=== PATIENT | male | born 1990 | race Caucasian/White ===

== ENCOUNTER 2020-09-01 11:05 | Emergency (ER) | payer OTHER, SELFPAY ==
--- NOTE | ~2020-09-01 | XR_ITS ---
EXAMINATION: XR abdomen/kub 1V DATE: 09/01/2020 11:54 INDICATION: Hematuria. Low back pain. TECHNIQUE: A supine view of the abdomen on 2 radiographs was obtained. COMPARISON: Abdomen radiographs 02/22/2017, CT abdomen and pelvis 02/22/2017 FINDINGS: There are no dilated loops of bowel. There is a phlebolith in the pelvis. There is a 7 x 4 mm stone in proximal left ureter. There are stones in the kidneys measuring up to 3.9 cm on the right . IMPRESSION: 1. 7 x 4 mm stone in proximal left ureter. 2. Bilateral kidney stones. Reviewed, dictated and finalized at location A.
[2020-09-01 11:15] VITALS: BP 142/77; PULSE 88; RESP 24; TEMP 36.7; O2SAT 100
--- NOTE | 2020-09-01 12:13 | ED.MALEGU ---
HPI - Male Genitourinary General Chief complaint: Urogenital-Male Stated complaint: BODY PAIN/LOW ABD/SIDES/BACK PAIN Time Seen by Provider: 09/01/20 12:02 Source: patient and RN notes reviewed Mode of arrival: ambulatory Limitations: no limitations History of Present Illness HPI Narrative: Patient presents today complaining of body aches and bilateral flank pain that started 5 days ago and has progressively worsened. Associated symptoms include fever up to 99.5, dark-colored urine. Denies dysuria, nausea or vomiting, known hematuria. States over the last couple of days he has developed lower abdominal pain, back pain, and groin pain. Currently rates his pain 6/10 and has been taking ibuprofen. Pain increases with walking and standing. Patient has history of kidney stones with lithotripsy. Reports last kidney stone was approximately 3 years ago when he was treated at [facility]. Complaint: other (Possible kidney stone) Related Data Home Medications Medication Instructions Recorded Confirmed bupropion HCl 150 mg tablet,12 hr 150 mg PO DAILY 08/07/19 09/01/20 sustained-release dextroamphetamine-amphetamine 10 10 mg PO DAILY 08/07/19 09/01/20 mg tablet escitalopram oxalate 10 mg PO DAILY 09/01/20 09/01/20 Allergies Allergy/AdvReac Type Severity Reaction Status Date / Time No Known Allergies Allergy Unverified 09/01/20 11:15 Review of Systems Review of Systems: Narrative: CONSTITUTIONAL: Denies chills, or sweats.+ Body aches, fever EYES: Denies visual changes, redness, or discharge. ENT: Denies rhinorrhea, congestion, sore throat, or otalgia. CARDIOVASCULAR: Denies chest pain, palpitations, or edema. RESPIRATORY: Denies cough or dyspnea. GASTROINTESTINAL: Denies nausea, vomiting, or diarrhea. + Abdominal pain GENITOURINARY: Denies dysuria or hematuria.+ Dark-colored urine, bilateral flank pain SKIN: Denies rash, itching, or wounds. MUSCULOSKELETAL: Denies joint pain, or myalgia. + Low back pain NEUROLOGIC: Denies headache, numbness, tingling, or weakness. PSYCH: Denies depression or anxiety. [facility] Past Medical History Medical History (Updated 09/01/20 @ 12:17 by Cele Orellana, WIRELESS MANAGER, ) Anxiety disorder Depression Hyperlipemia RENATA (obstructive sleep apnea) Panic disorder [episodic paroxysmal anxiety] Surgical History Surgical History (Updated 08/07/19 @ 15:12 by Marisabel Pinon CMA) Kidney stones Family History Family History (Updated 08/07/19 @ 15:12 by Marisabel Pinon CMA) Mother Diabetes mellitus Father Morbid obesity Social History Social History (Updated 08/07/19 @ 15:15 by Marisabel Pinon CMA) Smoking status: Never smoker Alcohol intake: current Substance use: never Comments At time of signature, I have reviewed and agree with nursing past medical, surgical, social and family history unless otherwise noted. Please see nursing chart for further information. There is no relevant family history pertinent to the presenting complaint Exam Narrative: Exam Narrative: GENERAL: Well-appearing, well-nourished, and in mild pain distress. HEAD: Normocephalic, atraumatic. EYES: EOMI. No redness or drainage. Conjunctivae normal. ENT: Mucous membranes pink and moist. NECK: Normal AROM. Supple. No lymphadenopathy. CHEST: No respiratory distress. Clear to auscultation. HEART: Regular rate and rhythm. No murmur appreciated. Normal peripheral pulses. ABDOMEN: Soft, nondistended, normal active bowel sounds. MUSCULOSKELETAL: No bony tenderness.+ Generalized abdominal tenderness. Bilateral CVA tenderness EXTREMITIES: Normal range of motion. No edema. SKIN: Warm, dry, no rash. Capillary refill normal. Normal skin turgor. NEURO: No focal deficits. Alert and oriented x3. Gait steady. PSYCH: Normal affect. No signs of depression or anxiety. Course Vital Signs Vital signs: Vital Signs Temperature 98.0 F 09/01/20 11:15 Pulse Rate 88 05
== END 2020-09-01 12:22 | disposition short-term general hospital (02) ==
PROVIDERS: Emergency Provider Nurse Practitioner
DX: N21.1 Calculus in urethra (principal); N39.0 Urinary tract infection, site not specified; F41.9 Anxiety disorder, unspecified; F32.9 Major depressive disorder, single episode, unspecified; E78.5 Hyperlipidemia, unspecified; G47.33 Obstructive sleep apnea (adult) (pediatric)
CPT/HCPCS: 74018; 81003; 99203; G0463

== ENCOUNTER 2020-09-01 12:47 | Observation (INO) | payer OTHER, SELFPAY ==
[2020-09-01] VITALS (7 sets, daily range): BP systolic 130–147; BP diastolic 60–78; PULSE 87–109; RESP 18–24; TEMP 36.3–36.6; O2SAT 93–99; BMI 33.9
--- NOTE | ~2020-09-01 | XR_ITS ---
XR abdomen/kub 1V 09/01/2020 20:06 Indication: Renal stones Procedure: KUB Comparison: 09/01/2020 Findings: There are bilateral internal ureteral stents in expected position. There are bilateral liliana l stones, largest in the right kidney measuring approximately 3.1 cm maximum dimension. Bowel gas pat tern nonobstructive. No acute osseous abnormality. Left UPJ stone not appreciated on current study. Impression: 1: Bilateral nephrolithiasis. Reviewed, dictated and finalized at location A. Impression: 1: Bilateral nephrolithiasis.
--- NOTE | ~2020-09-01 | XR_ITS ---
EXAMINATION: XR retrograde pyelo w/stent BI DATE: 09/01/2020 15:32 INDICATION: Bilateral internal ureteral stent placement TECHNIQUE: Fluoroscopic images from a bilateral internal ureteral stent placement are submitted for anibal rosenbaum. 18 seconds of fluoroscopy time. 6 fluoroscopic images FINDINGS: There are bilateral double-J internal ureteral stent projecting in expected position, with proximal C ope loop at the level of the renal pelvis and distal loop in the pelvis within the bladder lumen. IMPRESSION: 1. Bilateral internal ureteral stent placement. Please refer to real-time procedural findings for d etajoaquin. Reviewed, dictated and finalized at location A. IMPRESSION: 1. Bilateral internal ureteral stent placement. Please refer to real-time pro cedural findings for details.
--- NOTE | ~2020-09-01 | CT_ITS ---
EXAMINATION: CT abdomen pelvis wo con DATE: 09/01/2020 14:32 INDICATION: Bilateral flank pain. Pain with urination. TECHNIQUE: Computed tomography (CT) of the abdomen and pelvis was performed without intravenous contr ast. The dose-length product was 571.36 mGy-cm. Automated exposure control and iterative reconstructi on technique were employed. COMPARISON: CT dated 02/22/2017 FINDINGS: Lung bases are unremarkable. Heart size normal. No significant pleural or pericardial effus ion. There are multiple bilateral renal stones. There is a left UPJ stone measuring 6.5 mm. There is a large stone in the right renal pelvis measuring 2.3 cm. Bladder is decompressed. The liver, spleen, pancreas, adrenal glands are unremarkable. Bowel pattern is nonobstructive. No migdalia dence for diverticulitis or appendicitis. No abnormal pelvic masses or fluid collections. Gallbladder is present. No free air or free fluid. IMPRESSION: 1. Left UPJ stone measuring 6.5 mm with mild hydronephrosis and periureteral edema. 2: Bilateral nephrolithiasis, largest in the right renal pelvis measuring up to 2.3 cm. Reviewed, dictated and finalized at location A. IMPRESSION: 1. Left UPJ stone measuring 6.5 mm with mild hydronephrosis and periureteral ed lina. 2: Bilateral nephrolithiasis, largest in the right renal pelvis measuring up t o 2.3 cm.
[2020-09-01 13:39] LABS: Basophils Absolute Auto 0.1 K/mm3 (0.0-0.1); Basophils Percent Auto 0.6 % (0.2-1.2); Eosinophils Absolute Auto 0.1 K/mm3 (0-0.3); Hematocrit 42.3 % (42.0-52.0); Hemoglobin 14.7 g/dL (14.0-18.0); Immature Granulocyte Absolute 0.01 K/mm3 (0.00-0.031); Immature Granulocyte Percent A 0.1 % (0-0.5); Lymphocytes Absolute Auto 2.56 K/mm3 (0.9-3.2); Lymphocytes Percent Auto 32.7 % (18.3-44.2); Mean Corpuscular HGB Conc 34.8 g/dl (32-36); Mean Corpuscular Hemoglobin 28.9 pg (26-34); Mean Corpuscular Volume 83.3 fl (80-100); Mean Platelet Volume 8.7 fl (7.4-10.4); Monocytes Absolute Auto 0.7 K/mm3 (0.1-0.6); Monocytes Percent Auto 8.3 % (2.6-8.5); Neutrophils Absolute Auto 4.5 K/mm3 (1.3-6.7); Neutrophils Percent Auto 57.3 % (45.5-73.1); Platelet Count Result 227 k/mm3 (150-375); Red Blood Count 5.08 M/mm3 (4.6-6.20); Red Cell Distribution Width 12.2 % (11.5-14.5); White Blood Count 7.8 K/mm3 (4.5-10.0)
[2020-09-01 13:49] LABS: Lactic Acid Reflex 0.7 mmol/L (0.7-2.1)
[2020-09-01 13:52] LABS: Alanine Aminotransferase 30 U/L (4-50); Albumin Level 4.3 g/dL (3.5-5.1); Alkaline Phosphatase 69 U/L (38-126); Anion Gap 9 mmol/L (8-16); Aspartate Amino Transferase 28 U/L (17-59); Bilirubin,Total 0.4 mg/dL (0.2-1.3); Blood Urea Nitrogen 14 mg/dL (9-20); CRP 4.7 mg/dL (<1.0); Calcium 9.3 mg/dL (8.4-10.2); Carbon Dioxide 25 mmol/L (22-30); Chloride 106 mmol/L (98-107); Estimated CRCL calculation 171 ml/min; Estimated Glomerular Filt Rate > 60; Glucose 101 mg/dL (75-110); Sodium 140 mmol/L (137-145)
[2020-09-01 14:13] LABS: Add Urine Microscopic? YES; Appearance Urine Cloudy (Clear); Bacteria Urine Trace /hpf; Bilirubin Urine Negative (Negative); Blood Urine 3+ (Negative); Color Urine Yellow (Yellow); Glucose Urine UA Negative (Negative); Ketones Urine Negative (Negative); Leukocyte Esterase Ur 3+ LEU/UL (Negative); Mucus Urine Few /lpf; Nitrate Urine Positive (Negative); Protein Urine 2+ mg/dL (Negative); RBC Urine >75 /hpf (0-2); Specific Grav Ur 1.018 (1.001-1.035); Squamous Epithelial Cell Urine Rare /hpf (Few); Urobilinogen Urine Negative mg/dL (<2.0); WBC Urine >75 /hpf
--- NOTE | 2020-09-01 14:14 | ED.BACK ---
HPI - Back Pain/Injury General Chief Complaint: Back Pain/Injury <HOWIE Nobles Last Filed: 09/01/20 15:08> Stated Complaint: BILATERAL FLANK PAIN, +STONES <HOWIE Nobles Last Filed: 09/01/20 15:08> Time Seen by Provider: 09/01/20 13:45 <HOWIE Nobles Last Filed: 09/01/20 15:08> Source: patient <HOWIE Nobles Last Filed: 09/01/20 15:08> Mode of arrival: ambulatory <HOWIE Nobles Last Filed: 09/01/20 15:08> Limitations: no limitations <HOWIE Nobles Last Filed: 09/01/20 15:08> History of Present Illness HPI Narrative: This is a 30-year-old male that presents the emergency department for bilateral flank pain x5 days. Associated with dysuria. Reports history of kidney stones. He was evaluated at the urgent care and sent here for further evaluation of kidney stone and UTI. Denies fever, vomiting, or hematuria. <HOWIE Nobles Last Filed: 09/01/20 15:08> Related Data Home Medications: Home Medications Medication Instructions Recorded Confirmed bupropion HCl 150 mg tablet,12 hr 150 mg PO DAILY 08/07/19 09/01/20 sustained-release dextroamphetamine-amphetamine 10 10 mg PO DAILY 08/07/19 09/01/20 mg tablet escitalopram oxalate 10 mg PO DAILY 09/01/20 09/01/20 <HOWIE Nobles Last Filed: 09/01/20 15:08> Allergies/Adverse Reactions: Allergies Allergy/AdvReac Type Severity Reaction Status Date / Time No Known Allergies Allergy Verified 09/01/20 14:03 <HOWIE Nobles Last Filed: 09/01/20 15:08> Review of Systems Review of Systems: Narrative: CONSTITUTIONAL: Denies fever GASTROINTESTINAL: Reports abdominal pain. Denies nausea, vomiting GENITOURINARY: Reports dysuria. Denies hematuria. <HOWIE Nobles Last Filed: 09/01/20 15:08> All systems reviewed & are unremarkable except as noted in HPI and below <Amy Conley PA-C - Last Filed: 09/01/20 15:08> [facility] Past Medical History Medical History: Medical History Anxiety disorder Depression Hyperlipemia RENATA (obstructive sleep apnea) Panic disorder [episodic paroxysmal anxiety] <Amy Conley PA-C - Last Filed: 09/01/20 15:08> Surgical History Surgical History: Surgical History Kidney stones <Amy Conley PA-C - Last Filed: 09/01/20 15:08> Family History Family History: Family History Mother Diabetes mellitus Father Morbid obesity <Amy Conley PA-C - Last Filed: 09/01/20 15:08> Social History Social History: Social History Smoking status: Never smoker Alcohol intake: current Substance use: never Gender identity (if verbalized by the patient): Male <Amy Conley PA-C - Last Filed: 09/01/20 15:08> Exam Narrative: Exam Narrative: GENERAL: Well-appearing, obese, and in no acute distress. HEAD: Normocephalic, atraumatic. EYES: EOMI. CHEST: Clear to auscultation. No respiratory distress. No wheezes rales or rhonchi HEART: Regular rate and rhythm. No murmur heard. Normal peripheral pulses. ABDOMEN: Soft, nontender, nondistended, normal active bowel sounds. Bilateral CVA tenderness EXTREMITIES: Normal range of motion. No edema. SKIN: Warm, dry, no rash. NEURO: No focal deficits. Alert and oriented x3. PSYCH: Normal mood and affect <Amy Conley PA-C - Last Filed: 09/01/20 15:08> Course SERGING MACHINE OPERATOR/PA Physician Supervision For this patient encounter, I reviewed the SERGING MACHINE OPERATOR or PA documentation, treatment plan, and medical decision making; and I had [id number] time with this patient. <Kaye Solis MD - Last Filed: 09/01/20 14:50> Vital Signs Vital signs: Vital Signs Temperature 97.5 F L 09/01/20 13:17 Pulse Rate 109 H
[2020-09-01] MEDS: MORPHINE SULFATE (*CRX) 4 MG/ML INJ IV PUSH (14:17)
[2020-09-01] MEDS: ONDANSETRON INJ 4 MG/2 ML VIAL IV PUSH (14:17)
--- NOTE | 2020-09-01 14:17 | WPDHPUPDATE1 ---
History and Physical Update Update Date/Time: 09/01/20 14:17 History and Physical has been reviewed, including an updated exam of the patient. There are NO changes in the patient's condition. Risks, benefits, and alternatives have been discussed and questions answered. Patient agrees to proceed with procedure. To OR for cystoscopy and bilateral ureteral stent placement.
--- NOTE | 2020-09-01 14:17 | PM.IMHP ---
H&P: HPI History of Present Illness Date/Time: 09/01/20 14:17 Chief Complaint: Left flank pain Narrative: Mr. Hanson is a pleasant 30 year old man with a history of nephrolithiasis s/p lithotripsy in 2017 who presents to the [place] ER after going to Urgent Care earlier today for left flank pain with nausea. He denies fevers. UA at Urgent Care was positive for nitrites and LE. He reports he has had bilateral pain for the past several weeks but it has progressively worsened. His left sided pain is worse than the right. Review of Systems Constitutional: Constitutional: Reports no additional constitutional complaints Eyes: Eyes: Reports no additional eye complaints ENT: Reports Normal hearing present Cardiovascular: Cardiovascular: Reports no additional cardiovascular complaints Respiratory: Respiratory: Reports no additional respiratory complaints Gastrointestinal: Gastrointestinal: Reports no additional gastrointestinal complaints Genitourinary: Genitourinary: Reports flank pain (bilateral) Musculoskeletal: Musculoskeletal: Reports no additional musculoskeletal complaints Integumentary/Breasts: Skin/Breast: Reports system reviewed and no additional complaints, except as docu Neurologic: Reports system reviewed and no additional complaints, except as documented Psychiatric: Psychiatric: Reports no additional psychiatric complaints Endocrine: Endocrine: Reports no additional endocrine complaints Hematologic/Lymphatic: Hematologic/Lymphatic: Reports no additional hematologic/lymphatic complaints Allergic/Immunologic: Allergic/Immunologic: Reports no additional allergic/immunologic complaints [facility] Past Medical History Medical History Anxiety disorder Depression Hyperlipemia RENATA (obstructive sleep apnea) Panic disorder [episodic paroxysmal anxiety] Surgical History Surgical History Kidney stones Family History Family History Mother Diabetes mellitus Father Morbid obesity Social History Social History Smoking status: Never smoker Alcohol intake: current Substance use: never Gender identity (if verbalized by the patient): Male Meds Home Medications and Allergies Home Medications Medication Instructions Recorded Confirmed Type bupropion HCl 150 mg tablet,12 hr 150 mg PO DAILY 08/07/19 09/01/20 History sustained-release dextroamphetamine-amphetamine 10 10 mg PO DAILY 08/07/19 09/01/20 History mg tablet escitalopram oxalate 10 mg PO DAILY 09/01/20 09/01/20 History Allergies Allergy/AdvReac Type Severity Reaction Status Date / Time No Known Allergies Allergy Verified 09/01/20 14:03 Vital Signs Vital Signs - 24 hr 09/01/20 13:17 Temperature 97.5 F L Pulse Rate 109 H Respiratory Rate 18 Blood Pressure 134/71 Pulse Oximetry 99 Exam Const: General: cooperative, healthy appearing, well developed, alert and awake Eyes: General: appearance normal, both eyes and all related structures Neck: Neck: normal visual inspection Resp: Effort & Inspection: normal respiratory effort, able to speak in complete sentences, normal respiratory pattern, no audible wheezes and no cough Cardio: Rate: regular rate Peripheral pulses: Peripheral pulses 2+ throughout GI: Inspection: normal to inspection GI Palp: No abdominal tenderness, Yes Soft to palpation and No Tenderness to palpation present (GI) Skin: General skin exam: normal color and no rashes or lesions noted Neuro: General: oriented to person, oriented to place, oriented to time and no focal motor deficits Extrem: General: normal to inspection Psych: Appearance: grossly normal and well kempt Speech and movement: Normal speech and movement present and Clear speech present H&P: Results Labs Labs: Shor
[2020-09-01] MEDS: SODIUM CHLORIDE 0.9% IV 1,000 ML 999 ML IV CONT (14:24)
[2020-09-01 14:29] LABS: INR 0.9; Prothrombin Time 12.6 Seconds (11.1-14.7)
[2020-09-01 14:32] LABS: Partial Thromboplastin Time 27.9 SECONDS (22.3-36.8)
--- NOTE | 2020-09-01 14:37 | WPDANESEPP ---
Anes - Eval Pre Procedure Procedure: Operation Date: 09/01/20 15:30 Proposed Procedures p Cystoscopy(Not Applicable) - Senthil Marcial MD Date/Time: 09/01/20 14:37 Pre Op Diagnosis: BILATERAL FLANK PAIN, +STONES Patient Data Age: 30 Gender: M Height: 6 ft Weight: 113.4 kg Last Vital Signs Temp 36.4 C L 09/01/20 13:17 Pulse 109 H 09/01/20 13:17 Resp 18 09/01/20 13:17 BP 134/71 09/01/20 13:17 Pulse Ox 99 09/01/20 13:17 Allergies Allergy/AdvReac Type Severity Reaction Status Date / Time No Known Allergies Allergy Verified 09/01/20 14:03 Home Medications Medication Instructions Recorded Confirmed Type bupropion HCl 150 mg tablet,12 hr 150 mg PO DAILY 08/07/19 09/01/20 History sustained-release dextroamphetamine-amphetamine 10 10 mg PO DAILY 08/07/19 09/01/20 History mg tablet escitalopram oxalate 10 mg PO DAILY 09/01/20 09/01/20 History Laboratory Tests 09/01/20 09/01/20 09/01/20 13:30 13:30 13:30 WBC 7.8 K/mm3 K/mm3 (4.5-10.0) RBC 5.08 M/mm3 M/mm3 (4.6-6.20) Hgb 14.7 g/dL g/dL (14.0-18.0) Hct 42.3 % % (42.0-52.0) MCV 83.3 fl fl (80-100) MCH 28.9 pg pg (26-34) MCHC 34.8 g/dl g/dl (32-36) RDW 12.2 % % (11.5-14.5) Plt Count 227 k/mm3 k/mm3 (150-375) MPV 8.7 fl fl (7.4-10.4) Immature Gran % (Auto) 0.1 % % (0-0.5) Neut % (Auto) 57.3 % % (45.5-73.1) Lymph % (Auto) 32.7 % % (18.3-44.2) [place] % (Auto) 8.3 % % (2.6-8.5) Eos % (Auto) 1.0 % % (0-4.4) Baso % (Auto) 0.6 % % (0.2-1.2) Lymph # (Auto) 2.56 K/mm3 K/mm3 (0.9-3.2) [place] # (Auto) 0.7 K/mm3 H K/mm3 (0.1-0.6) Eos # (Auto) 0.1 K/mm3 K/mm3 (0-0.3) Baso # (Auto) 0.1 K/mm3 K/mm3 (0.0-0.1) Abs Immat Gran (auto) 0.01 K/mm3 K/mm3 (0.00-0.031) Absolute Neuts (auto) 4.5 K/mm3 K/mm3 (1.3-6.7) Absolute Nucleated RBC 0.0 K/mm3 K/mm3 (0.0-0.012) Nucleated RBC % 0.0 % % (0.0-0.2) PT INR APTT Sodium 140 mmol/L mmol/L (137-145) Potassium 4.0 mmol/L mmol/L (3.4-5.0) Chloride 106 mmol/L mmol/L (98-107) Carbon Dioxide 25 mmol/L mmol/L (22-30) Anion Gap 9 mmol/L mmol/L (8-16) BUN 14 mg/dL mg/dL (9-20) Creatinine 0.70 mg/dL mg/dL (0.7-1.3) Estim Creat Clear Calc 171 ml/min ml/min Estimated GFR > 60 (59 - ) Glucose 101 mg/dL mg/dL (75-110) Lactic Acid 0.7 mmol/L mmol/L (0.7-2.1) Calcium 9.3 mg/dL mg/dL (8.4-10.2) Total Bilirubin 0.4 mg/dL mg/dL (0.2-1.3) AST 28 U/L U/L (17-59) ALT 30 U/L U/L (4-50) Alkaline Phosphatase 69 U/L U/L (38-126) C-Reactive Protein 4.7 mg/dL H mg/dL (<1.0) Total Protein 8.0 g/dL g/dL (6.3-8.2) Albumin 4.3 g/dL g/dL (3.5-5.1) Urine Color Urine Appearance Urine pH Ur Specific [place] Urine Protein Urine Glucose (UA) Urine Ketones Ur Blood (Man) Urine Nitrate Urine Bilirubin Urine Urobilinogen Leukocyte Esterase Rfl Urine RBC Urine WBC Ur Squamous Epith Cells Urine Bacteria Urine Mucus 09/01/20 09/01/20 13:59 13:59 WBC RBC Hgb Hct MCV MCH MCHC RDW Plt Count MPV Immature Gran % (Auto) Neut % (Auto) Lymph % (Auto) [place] % (Auto) Eos % (Auto) Baso % (Auto) Lymph # (Auto) [place] # (Auto) Eos # (Auto)
--- NOTE | 2020-09-01 14:39 | WPDURCON ---
Assessment and Plan Assessment and plan (1) [place] kidney stones: Code(s): N20.0 - Calculus of kidney Status: Acute Assessment and Plan: As patient is symptomatic and has nitrite positive urine, we will proceed with right ureteral stent placement. CT demonstrates a 2.3x2.9 cm right renal pelvis stone along with other smaller right renal stones. Left 7mm proximal ureteral stone with hydronephrosis. (2) Calculus of left ureter: Code(s): N20.1 - Calculus of ureter Status: Acute Assessment and Plan: Patient reports symptomatic bothersome left pain with tachycardia and nitrite positive urine, we will proceed with bilateral ureteral stent placement. We have discussed the risks of infection, bleeding, need for further surgery, retained ureteral stents, postoperative pain, injury to urethra/bladder/ureter/kidney, inability to cross the obstruction requiring nephrostomy placement. Rocephin administered in ER. Admit to Hospital Medicine, appreciate their assistance with this patient. Urology Consult Note HPI Date Seen: 09/01/20 Primary Care Provider: HOTEL ATTENDANT PHYSICIAN Consult Narrative Narrative: Mr. Hanson is a pleasant 30 year old man with a history of nephrolithiasis s/p lithotripsy in 2017 who presents to the [place] ER after going to Urgent Care earlier today for left flank pain with nausea. He denies fevers. UA at Urgent Care was positive for nitrites and LE. He reports he has had bilateral pain for the past several weeks but the left-sided pain progressively worsened about 5-6 days ago. His left sided pain is worse than the right Review of Systems Constitutional: Constitutional: Reports no additional constitutional complaints Eyes: Eyes: Reports no additional eye complaints ENT: Reports system reviewed and no additional complaints, except as documented Cardiovascular: Cardiovascular: Reports no additional cardiovascular complaints Respiratory: Respiratory: Reports no additional respiratory complaints Genitourinary: Genitourinary: Reports flank pain (bilateral) Musculoskeletal: Musculoskeletal: Reports no additional musculoskeletal complaints Integumentary/Breasts: Skin/Breast: Reports system reviewed and no additional complaints, except as docu Neurologic: Reports system reviewed and no additional complaints, except as documented Psychiatric: Psychiatric: Reports no additional psychiatric complaints PMF Past Medical History Medical History Anxiety disorder Depression Hyperlipemia RENATA (obstructive sleep apnea) Panic disorder [episodic paroxysmal anxiety] Surgical History Surgical History Kidney stones Family History Family History Mother Diabetes mellitus Father Morbid obesity Social History Social History Smoking status: Never smoker Alcohol intake: current Substance use: never Gender identity (if verbalized by the patient): Male Meds Home Medications and Allergies Home Medications Medication Instructions Recorded Confirmed Type bupropion HCl 150 mg tablet,12 hr 150 mg PO DAILY 08/07/19 09/01/20 History sustained-release dextroamphetamine-amphetamine 10 10 mg PO DAILY 08/07/19 09/01/20 History mg tablet escitalopram oxalate 10 mg PO DAILY 09/01/20 09/01/20 History Allergies Allergy/AdvReac Type Severity Reaction Status Date / Time No Known Allergies Allergy Verified 09/01/20 14:03 Vital Signs Vital Signs - 24 hr 09/01/20 13:17 Temperature 97.5 F L Pulse Rate 109 H Respiratory Rate 18 Blood Pressure 134/71 Pulse Oximetry 99 Exam Const: General: no acute distress and uncomfortable Eyes: General: appearance normal, both eyes and all related structures Cardio: Rate: tachycardic Rhythm: regular
--- NOTE | 2020-09-01 14:40 | PC.NURSE ---
Report given to surgery.
--- NOTE | 2020-09-01 15:05 | WPDANESEFPP ---
Anes - Eval Final PreProcedure Day of Procedure 09/01/20 15:05 Patient weight: obese Heart: regular rate and rhythm Lungs: clear to auscultation and normal air movement Airway: Mallampati scale class III Neurological: alert and oriented Last oral intake: >/= 8 hours ASA classification: III Emergent: yes Anesthetic plan: proceed Anesthesia type and monitoring: general GIVS and standard monitoring Informed Consent: The patient's anesthetic plan and its attendant risks and benefits were discussed with the patient/family/POA. Questions were solicited and answers provided to the satisfaction of the patient/family/POA.
[2020-09-01] MEDS: LACTATED RINGERS 1,000 ML 30 ML IV CONT (15:10)
[2020-09-01] MEDS: LIDOCAINE HCL 2% GEL UROJET 10 ML PKG MUCOUS MEM (15:31)
--- NOTE | 2020-09-01 15:31 | P.OP_ITS ---
Procedure Note - Detailed Date of procedure: 09/01/20 Pre-op diagnosis: BILATERAL FLANK PAIN, +STONES Post-op diagnosis: same Procedure performed: 1. Cystoscopy and bilateral ureteral stent placement. 2. Bilateral retrograde pyelograms 3. Fluoroscopy with interpretation of images, less than 1 hour. Description of procedure: After offering informed written consent the patient was brought to the operating room and positioned on the table in the supine position. IV anesthesia was administerd. The patient was prepped and draped in the standard sterile fashion. A call to order was made to confirm patient identity and proper procedure. The procedure began with the atraumatic insertion of a cystoscope. No bladder masses, lesion or stones were noted. The left ureteral orifice was approached and an open-ended ureteral catheter was placed w ith wire to the distal ureter. A gentle retrograde was performed to definite the renal anatomy. The wire was replaced and a 6F variable length stent was placed with excellent curls noted fluoroscopically. Attention was then turned to the right side and the procedure was repeated in the precise manner, in brief a catheter was advanced to the distal ureter with a wire, gentle retrograde pyelogram performed, and the wire replaced, the stent was advanced over the wire to the renal pelvis and the wire removed forming curls in the renal pelvis and bladder, confirmed fluoroscopically and under direct vision, respectively. The bladder was irrigated and the cystoscope removed. 10 cc of lidocaine jelly was placed per urethra. Anesthesia: other (TIVA) Surgeon: Senthil Marcial MD Estimated blood loss (mL): 2 Drains: Yes (1. Right 6F variable length stent 2. Left 6F variable length stent.) Pathology: yes (urine for culture (after stent placement)) Complications: None Condition: stable Disposition: PACU Findings: 1. No bladder masses, lesions or stones. 2. Orthotopic ureteral orifices. 3. Appropriate placement of ureteral stents.
--- NOTE | 2020-09-01 16:30 | ADMGEN ---
This patient, Timmy Hanson, was admitted to 3 Medical Room 347-01. Patient/family oriented to hospital policies and general routines including ID bracelet, bed and alarms, visiting hours, pain management, procedures, bathroom and other care routines, personal items, smoking policy, room service/diet, and visiting hours. Information on how to activate the Rapid Response Team has been discussed. Patient/Family are encouraged to report perceived risks to care and to ask questions if they do not understand what they are told or what they should do.
[2020-09-01] MEDS: HYDROcodone/acetaminophen (*CRX) 5-325 MG TABLET 1 TAB PO (22:20)
--- NOTE | 2020-09-01 22:45 | PM.IMHP ---
H&P: HPI History of Present Illness Date/Time: 09/01/20 22:45 Chief Complaint: Left flank and back pain. Narrative: This is a 30-year-old male to the emergency department earlier today from urgent care for evaluation of left flank and back pain. Intermittently over the last couple of weeks he has had discomfort in his bilateral mid to low back. Within the last several days he has had progressive pain on the left side which has now become more localized to the left side and into the left groin. Today his pain was particularly bad and associated with nausea and dysuria thus he came in for evaluation. He describes colicky pain, similar to when he has had kidney stones in the past. CT of the abdomen and pelvis showed a 2.3 x 2.9 centimeter right renal pelvis stone with other smaller right renal stones and a 7 millimeter left proximal ureteral stone with hydronephrosis. He is now status post cystoscopy with bilateral ureteral stent placement per Dr. Marcial. At the time my evaluation he does not have a whole lot of discomfort in his back but still has some aching pain in his left groin. He also reports dysuria. No fever, chills, sweats, or vomiting. Review of Systems Review of Systems: Narrative: Twelve systems were reviewed with pertinent positives and negatives as per HPI. He denies recent cold and flu symptoms. No known exposure to those positive for COVID-19. No chest pain or shortness of breath. reports that he snores and she has witnessed some episodes of apnea. He is in the process is getting a sleep study set up. Except as documented, all other systems were reviewed and are negative. [facility] Past Medical History Medical History (Updated 09/01/20 @ 23:45 by Yesenia Goldberg PA-C) Anxiety disorder Attention deficit hyperactivity disorder Calculus of left ureter Depression Hyperlipemia Kidney stones Obsessive compulsive disorder Suspected sleep apnea Patient has yet to have a formal outpatient polysomnogram. Surgical History Surgical History (Updated 09/01/20 @ 22:32 by Yesenai Goldberg PA-C) History of cystoscopy History of lithotripsy Family History Family History Mother Diabetes mellitus Father Morbid obesity Social History Social History (Updated 09/01/20 @ 23:44 by Yesenia Goldberg PA-C) Social History: The patient lives in [place] with his and their dog. He works at a local [employer]. Lifelong nonsmoker. No alcohol or illicit substance abuse. He designates his , Estephania Hanson, as his surrogate decision maker and he wishes to be a full code. Alcohol use details: maybe once a month, if that Living arrangements: with family Meds Home Medications and Allergies Home Medications Medication Instructions Recorded Confirmed Type bupropion HCl 150 mg tablet,12 hr 150 mg PO DAILY 08/07/19 09/01/20 History sustained-release dextroamphetamine-amphetamine 10 20 mg PO DAILY 08/07/19 09/01/20 History mg tablet escitalopram oxalate 10 mg PO DAILY 09/01/20 09/01/20 History Allergies Allergy/AdvReac Type Severity Reaction Status Date / Time No Known Allergies Allergy Verified 09/01/20 16:44 Vital Signs Vital Signs - 24 hr 09/01/20 13:17 09/01/20 14:55 09/01/20 15:35 Temperature 97.5 F L 97.8 F Pulse Rate 109 H 87 94 Respiratory Rate 18 18 23 H Blood Pressure 134/71 132/68 147/75 H Pulse Oximetry 99 99 96 09/01/20 15:50 09/01/20 16:05 09/01/20 16:20 Temperature Pulse Rate 88 88 92 Respiratory Rate 24 H 21 H 19 Blood Pressure 130/74 141/74 H 134/78 Pulse Oximetry 99 94 93 09/01/20 20:10 Temperature 97.3 F L Pulse Rate 92 Respiratory Rate 18 Blood Pressure 147/60 H Pulse Oximetry 96 Exam Narrative: Exam Narrative: General: Well-developed male supine in bed in no distress. Weight: 113.4 kilograms. BMI: 33.9. HEENT: Wearing glasses. PERRL, EOMI. Sclerae anic
[2020-09-01] MEDS: ALPRAZolam (*CRX) 0.125 MG TABLET PO (23:55)
[2020-09-02 05:20] LABS: Hematocrit 38.4 % (42.0-52.0); Mean Corpuscular HGB Conc 33.9 g/dl (32-36); Mean Corpuscular Hemoglobin 28.1 pg (26-34); Mean Corpuscular Volume 83.1 fl (80-100); Mean Platelet Volume 8.7 fl (7.4-10.4); Platelet Count Result 220 k/mm3 (150-375); Red Blood Count 4.62 M/mm3 (4.6-6.20); Red Cell Distribution Width 12.2 % (11.5-14.5); White Blood Count 9.7 K/mm3 (4.5-10.0)
[2020-09-02 05:32] LABS: Alanine Aminotransferase 29 U/L (4-50); Albumin Level 3.9 g/dL (3.5-5.1); Alkaline Phosphatase 54 U/L (38-126); Anion Gap 8 mmol/L (8-16); Aspartate Amino Transferase 25 U/L (17-59); Bilirubin,Total 0.5 mg/dL (0.2-1.3); Blood Urea Nitrogen 15 mg/dL (9-20); Carbon Dioxide 26 mmol/L (22-30); Chloride 106 mmol/L (98-107); Estimated CRCL calculation 171 ml/min; Estimated Glomerular Filt Rate > 60; Glucose 101 mg/dL (75-110); Phosphorus 3.6 mg/dL (2.5-4.5); Potassium 4.1 mmol/L (3.4-5.0); Sodium 140 mmol/L (137-145)
[2020-09-02 06:16] VITALS: BP 130/64; PULSE 77; RESP 18; TEMP 36.8; O2SAT 99
[2020-09-02] MEDS: HYDROcodone/acetaminophen (*CRX) 5-325 MG TABLET 1 TAB PO (06:57)
[2020-09-02] MEDS: buPROPion HCL XL (24 HR) 150 MG TABCR PO (09:18)
[2020-09-02] MEDS: ESCITALOPRAM OXALATE 10 MG TABLET PO (09:18)
[2020-09-02] MEDS: OXYBUTYNIN CHLORIDE 5 MG TABLET PO (10:29)
--- NOTE | 2020-09-02 12:17 | PM.DS ---
DS: Admitting Diagnosis Admitting Diagnosis Admitting Diagnosis: Ureterolithiasis DS: Discharge Diagnosis Discharge Diagnosis (1) Hydronephrosis of left kidney: Code(s): N13.30 - Unspecified hydronephrosis Status: Acute Assessment and Plan: Date of Admission 09/01/20 Date of Discharge 09/02/20 Mr. Hanson is a 30yo M with ADHD, OCD and anxiety who presented to the ED from Urgent Care for evaluation of bilateral flank and low back pain for 4 days with associated dysuria and left groin pain. CT abdomen/pelvis demonstrated left UPJ stone measuring 6.5 mm with mild hydronephrosis and periureteral edema; bilateral nephrolithiasis, largest in the right renal pelvis measuring up to 2.3 cm. Urology was consulted and the patient was evaluated by Dr. Marcial. The patient underwent cystoscopy and bilateral ureteral stent placement, PRANAY retrograde pyelograms on 09/01/[address] Marcial. He tolerated the procedure well but does have some stent discomfort and dysuria. Blood cultures were collected and show no growth to date. Urine cultures are pending. He has been treated with 2 doses of IV ceftriaxone. It has been explained to the patient that normally we would wait for some preliminary urinary culture results prior to discharge. He verbalizes understanding however he describes he is very anxious and would prefer to discharge home today. He is hemodynamically stable to do so and we will prescribe oral antibiotics, follow-up culture results and contact the patient if the antibiotics need to be changed. He will be discharged with oral cefdinir to complete a 7-day course and will follow-up with urology for anticipated upcoming lithotripsy. He is also prescribed oral [place] and oxybutynin due to his stent discomfort and bladder spasms, respectively. (2) Calculus of left ureter: Code(s): N20.1 - Calculus of ureter Status: Acute Assessment and Plan: See above. (3) Staghorn kidney stones: Code(s): N20.0 - Calculus of kidney Status: Acute Assessment and Plan: See above. (4) Urinary tract infection: Qualifiers: Hematuria presence: with hematuria Urinary tract infection type: site unspecified Qualified Code(s): N39.0 - Urinary tract infection, site not specified; R31.9 - Hematuria, unspecified Code(s): N39.0 - Urinary tract infection, site not specified Status: Suspected Assessment and Plan: UA grossly abnormal, may be related to nephrolithiasis vs. UTI. Treated with 2 doses of IV ceftriaxone. Discharged with oral cefdinir. I will follow urine and blood culture results and contact the patient antibiotics need to be changed. (5) Psychiatric illness: Code(s): F99 - Mental disorder, not otherwise specified Status: Chronic Assessment and Plan: Patient carries diagnoses of ADHD, OCD, anxiety disorder. Resume his home medications. DS: Summary Hospital Course Hospital Course: See above. Time Spent with Patient Time attestation: Total time spent providing and/or coordinating discharge services: 35 minutes. Exam Narrative: Exam Narrative: General: Male resting comfortably supine in bed in no acute distress. HEENT: Normocephalic, EOMI, oral mucosa moist. Cardiovascular: Rate and rhythm are regular. Respiratory: Lungs clear to auscultation bilaterally. Respirations even and non-labored. Tolerating room air. Abdomen: Soft, non-distended, bowel sounds present. Slight tenderness to palpation of bilateral flanks without guarding. Extremities: Peripheral pulses intact. No edema or pain to palpation. Neuro: Awake alert; answer questions appropriately. No focal neurological deficits. Speech is clear. DS: Data Data Completed and Pe
--- NOTE | 2020-09-02 13:07 | WPDUROPN2 ---
Progress Note: A&P Assessment and Plan (1) Hydronephrosis of left kidney: Code(s): N13.30 - Unspecified hydronephrosis Status: Acute Assessment and Plan: Stents are in and draining, patient is slightly intolerant to them, but taking Oxybutynin TID PRN. He understands that for the duration of the stents he will have continued urgency and dysuria/hematuria which is common. (2) Calculus of left ureter: Code(s): N20.1 - Calculus of ureter Status: Acute Assessment and Plan: Will plan to schedule a left ESWL with Dr. Marcial. The homicide detective will call him to set it up. (3) Staghorn kidney stones: Code(s): N20.0 - Calculus of kidney Status: Acute Assessment and Plan: Discussed a PCNL with DR. Marcial in the future after the left UPJ stone has been resolved. (4) UTI (urinary tract infection): Code(s): N39.0 - Urinary tract infection, site not specified Status: Acute Assessment and Plan: Patient was told that we usually keep patients until the urine culture is back, but he is very anxious about staying another night and wants to leave. Since he is stable and his pain is under control I discussed with the hospitalist that this is ok, she will follow his urine culture and change antibiotics if necessary. She will plan to send home on Cefdinir. Ok to discharge home. Subjective Subjective Date/Time Seen: 09/02/20 13:07 POD #1 Cystoscopy, bilateral stent placement, bilateral retrograde pyleogram CT shows a 6.5mm left UPJ stone, right 2.3cm stone He is doing well, c/o urgency from the stents, he is on Oxybutynin TID PRN aleady, I alerted him that this will likely continue. Review of Systems Cardiovascular: Cardiovascular: Denies chest pain Respiratory: Respiratory: Reports no additional respiratory complaints Gastrointestinal: Gastrointestinal: Denies abdominal pain, Denies nausea and Denies vomiting Genitourinary: Genitourinary: Denies dysuria, Denies flank pain, Reports urinary frequency and Reports urinary urgency Exam Resp: Effort & Inspection: normal respiratory effort Cardio: Rate: regular rate GI: GI Palp: Yes Soft to palpation and No Tenderness to palpation present (GI) : General: Yes no CVA tenderness Extrem: General: no edema Objective Data Vital Signs Vital Signs: Vital Signs - 24 hr 09/01/20 13:17 09/01/20 14:55 09/01/20 15:35 Temperature 97.5 F L 97.8 F Pulse Rate 109 H 87 94 Respiratory Rate 18 18 23 H Blood Pressure 134/71 132/68 147/75 H Pulse Oximetry 99 99 96 09/01/20 15:50 09/01/20 16:05 09/01/20 16:20 Temperature Pulse Rate 88 88 92 Respiratory Rate 24 H 21 H 19 Blood Pressure 130/74 141/74 H 134/78 Pulse Oximetry 99 94 93 09/01/20 20:10 09/02/20 06:16 Temperature 97.3 F L 98.3 F Pulse Rate 92 77 Respiratory Rate 18 18 Blood Pressure 147/60 H 130/64 Pulse Oximetry 96 99 Intake/Output Intake/Output: Intake & Output 08/30/20 08/31/20 09/01/20 09/02/20 23:59 23:59 23:59 23:59 Intake Total 700 350 Output Total 400 225 Balance 300 125 Meds/Results Medications: Active Medications Generic Name Dose Route Start Last Admin Trade Name Freq PRN Reason Stop Dose Admin Hydrocodone Bitart/Acetaminophen 1 tab 09/01/20 22:05 09/02/20 06:57 Hydrocodone/Acetaminophen (*Crx) 5-325 Mg Tablet PO 1 tab Q4H PRN Administration Pain Rated 4-6 Bupropion HCl 150 mg 09/02/20 09:00 09/02/20 09:18 Bupropion Hcl Xl (24 Hr) 150 Mg Tabcr PO 150 mg DAILY KAYLA Administration Escitalopram Oxalate 10 mg 09/02/20 09:00 09/02/20 09:18 Escitalopram Oxalate 10 Mg Tablet PO 10 mg DAILY KAYLA Administration Fentanyl Citrate 25 mcg 09/01/20 15:34 Fentanyl Citrate Inj (*Crx) 100 Mcg/2 Ml Vial IV PUSH Q2M PRN Pain Lactated Ringer's 1,000 mls @ 30 mls/hr 09/01/20 15:35 09/01/20 16:17 Lr - Lactated Ringers Iv IV CONT Infused .Q24H KAYLA Infusi
== END 2020-09-02 15:15 | disposition home or self-care (01) ==
LOC: ANHED 15:08 → ANH3MED 09-02 00:56
PROVIDERS: Physician Assistant; Urology; Admitting Provider Family Medicine; Emergency Provider Emergency Medicine; Visit Provider Physician Assistant
PROC: (CPT 52352; principal; 2020-09-01 15:30)
DX: N13.2 Hydronephrosis with renal and ureteral calculous obstruction (principal); N39.0 Urinary tract infection, site not specified; E78.5 Hyperlipidemia, unspecified; F41.8 Other specified anxiety disorders; F90.9 Attention-deficit hyperactivity disorder, unspecified type; F42.8 Other obsessive-compulsive disorder; E66.9 Obesity, unspecified; Z68.33 Body mass index [BMI] 33.0-33.9, adult
CPT/HCPCS: 52332; 36415; 74018; 74176; 74420; 80053; 81001; 83605; 83735; 84100; 85025; 85027; 85610; 85730; 86140; 87040; 87086; 87088; 96365; 96368; 96375; 99285; A9270; C1758; C1769; C2617; G0378; J0131; J0696; J2250; J2270; J2405; J2704; J3010; J7030; J7120; Q9966

== ENCOUNTER 2021-09-21 07:10 | Observation (INO) | payer OTHER, SELFPAY ==
[2021-09-21] VITALS (16 sets, daily range): BP systolic 123–152; BP diastolic 72–90; PULSE 62–93; RESP 12–20; TEMP 36.4–37; O2SAT 94–99; BMI 35.4
--- NOTE | ~2021-09-21 | XR_ITS ---
EXAMINATION: XR abdomen/kub 1V DATE: 09/21/2021 08:17 INDICATION: Left flank pain. TECHNIQUE: A supine view of the abdomen on 2 radiographs was obtained. COMPARISON: CT abdomen and pelvis 09/21/2021 FINDINGS: There are no dilated loops of bowel. There are multiple stones in right kidney measuring up to 19 mm. There are multiple stones in left kidney measuring up to 8 mm. There is a 5 mm stone in pr oximal left ureter. IMPRESSION: 1. 5 mm stone in proximal left ureter. 2. Bilateral kidney stones. Reviewed, dictated and finalized at location A.
--- NOTE | ~2021-09-21 | CT_ITS ---
EXAMINATION: CT abdomen pelvis wo con DATE: 09/21/2021 08:09 INDICATION: Left flank pain. TECHNIQUE: Computed tomography (CT) of the abdomen and pelvis was performed without intravenous contr ast. Automated exposure control and iterative reconstruction technique were employed. The dose-length product was 1249.62 mGy-cm. COMPARISON: CT abdomen and pelvis 09/01/2020 FINDINGS: The visualized portions of the lung bases demonstrated mild atelectasis. No pleural effusio n. The heart size is normal. No pericardial effusion. There is diffuse hepatic steatosis. The spleen, gallbladder, pancreas, and adrenal glands are normal. There are approximately 8 stones in right kidn ey measuring up to 19 mm. There are approximately 9 stones in left kidney measuring up to 8 mm. There is mild left hydronephrosis. There is a 5 mm stone in proximal left ureter. There is diverticulosis of the colon without evidence of diverticulitis. The appendix is normal. There are no dilated loops o f bowel. There are no pathologically enlarged lymph nodes. There is no free intraperitoneal fluid. Th ere is a benign bone island in proximal left femur. There is mild thoracolumbar spondylosis. IMPRESSION: 1. 5 mm stone in proximal left ureter with mild left hydronephrosis. 2. Bilateral nonobstructing kidney stones. Reviewed, dictated and finalized at location A.
--- NOTE | ~2021-09-21 | XR_ITS ---
EXAMINATION: XR retrograde pyelo w/stent LT DATE: 09/21/2021 14:10 CDT INDICATION: CYSTO, RETRO,LEFT STENT . TECHNIQUE: 51 fluoroscopic images of the abdomen were obtained during cystography, retrograde pyelogr aphy, and stent placement performed by the surgeon. I was not present in the operating room. Fluorosc opy exposure time was 10.6 seconds. Cumulative dose was 0.74265 mGy2. COMPARISON: CT abdomen and pelvis 09/21/21 FINDINGS: Left inferior pole and bilateral renal pelvis calcifications. Remaining pubis identified calculi are less well seen. Contrast fills a mildly dilated proximal collecting system. The final image demonstra luke stent placement into the left renal pelvis. IMPRESSION: Fluoroscopic documentation of cystography, retrograde pyelogram, and left stent placement. Reviewed, dictated and finalized at location K.
--- NOTE | 2021-09-21 07:21 | ED.GENADULT ---
HPI - General Adult General Chief complaint: Back Pain/Injury Stated complaint: back and side pain Time Seen by Provider: 09/21/21 07:16 Source: RN notes reviewed History of Present Illness HPI narrative: Patient presents emergency department from home for left flank pain. Patient states symptoms initially began approximately 1 week ago and is worsened over the past several days. Pain is located left flank and radiates into the left side of the abdomen described as sharp and stabbing in nature. He states he had gone to urgent care few days ago and had been diagnosed with a UTI but states he does have a history of kidney stones had been started on Cipro at that time. He denies any fevers or chills, chest pain, shortness of breath nausea vomiting diarrhea or any other symptoms. States he took Tylenol this morning for the pain with no relief Related Data Home Medications Medication Instructions Recorded Confirmed bupropion HCl 150 mg tablet,12 hr 150 mg PO DAILY 08/07/19 09/01/20 sustained-release (Wellbutrin SR) dextroamphetamine-amphetamine 10 20 mg PO DAILY 08/07/19 09/01/20 mg tablet (Adderall) escitalopram oxalate 10 mg tablet 10 mg PO DAILY 09/01/20 09/01/20 Allergies Allergy/AdvReac Type Severity Reaction Status Date / Time No Known Allergies Allergy Verified 09/21/21 07:39 Review of Systems Review of Systems: Gen.: Denies fevers or chills ENT: Denies congestion Respiratory: Denies shortness of breath or cough CV: Denies chest pain or palpitations GI: See HPI Musculoskeletal: Denies back pain or muscle pain Neuro: Denies numbness, tingling, weakness or focal weakness Skin: Denies rash Except as documented, all other systems reviewed and negative [facility] Past Medical History Medical History Anxiety disorder Attention deficit hyperactivity disorder Calculus of left ureter Depression Hyperlipemia Kidney stones Obsessive compulsive disorder Suspected sleep apnea Patient has yet to have a formal outpatient polysomnogram. Surgical History Surgical History (Updated 09/01/20 @ 22:32 by Yesenia Goldberg PA-C) History of cystoscopy History of lithotripsy Family History Family History Mother Diabetes mellitus Father Morbid obesity Social History Social History Social History: The patient lives in [place] with his and their dog. He works at a local [employer]. Lifelong nonsmoker. No alcohol or illicit substance abuse. He designates his , Estephania Hanson, as his surrogate decision maker and he wishes to be a full code. Alcohol use details: maybe once a month, if that Exam Narrative: APPEARANCE: No acute distress, nontoxic, resting in bed HEENT: Normocephalic, atraumatic, OMM RESPIRATORY: No respiratory distress, clear to auscultation bilaterally with no rhonchi wheezing or rales CARDIOVASCULAR: RRR s murmur ABDOMINAL: Soft nondistended tender palpation in left lower quadrant no tenderness left upper quadrant, right upper quadrant right lower quadrant no rebound or guarding, left flank tenderness MUSCULOSKELETAl: Moves all extremities. No clubbing, cyanosis or edema. NEURO: Awake and alert. Following commands, speech normal, no focal deficits SKIN:: Warm, dry. Normal Color PSYCHIATRIC: Normal affect/mood Course Course Emergency Course: Cussed with Dr. Cortes for urology presentation work-up agrees with plan for Rocephin will plan for the OR today request patient be admitted his urine was partially treated on Cipro and will need to be treated until full culture is return Discussed with Dr. Reynoso agrees with admission Discussed with patient and family results of workup and diagnosis. Discussed need for admission. Patient and family understand and agree to current treatment plan Vital Signs Vital signs: V
[2021-09-21 07:39] LABS: Basophils Absolute Auto 0.1 K/mm3 (0.0-0.1); Basophils Percent Auto 0.8 % (0.2-1.2); Eosinophils Absolute Auto 0.1 K/mm3 (0-0.3); Eosinophils Percent Auto 1.2 % (0-4.4); Immature Granulocyte Absolute 0.01 K/mm3 (0.00-0.031); Immature Granulocyte Percent A 0.1 % (0-0.5); Lymphocytes Absolute Auto 2.89 K/mm3 (0.9-3.2); Mean Corpuscular HGB Conc 34.1 g/dl (32-36); Mean Corpuscular Hemoglobin 28.3 pg (26-34); Mean Platelet Volume 8.8 fl (7.4-10.4); Monocytes Absolute Auto 0.5 K/mm3 (0.1-0.6); Monocytes Percent Auto 6.6 % (2.6-8.5); Neutrophils Absolute Auto 3.7 K/mm3 (1.3-6.7); Neutrophils Percent Auto 51.3 % (45.5-73.1); Platelet Count Result 234 k/mm3 (150-375); Red Blood Count 4.94 M/mm3 (4.6-6.20); Red Cell Distribution Width 12.5 % (11.5-14.5); White Blood Count 7.2 K/mm3 (4.5-10.0)
[2021-09-21] MEDS: KETOROLAC 30 MG/ML VIAL (*BKC) IV PUSH (07:45)
[2021-09-21] MEDS: SODIUM CHLORIDE 0.9% IV 1,000 ML 999 ML IV CONT (07:45)
[2021-09-21 07:51] LABS: Alanine Aminotransferase 54 U/L (6-50); Albumin Level 4.4 g/dL (3.5-5.1); Alkaline Phosphatase 64 U/L (38-126); Anion Gap 4 mmol/L (8-16); Aspartate Amino Transferase 39 U/L (17-59); Bilirubin,Total 0.4 mg/dL (0.2-1.3); Blood Urea Nitrogen 23 mg/dL (9-20); Carbon Dioxide 27 mmol/L (22-30); Chloride 105 mmol/L (98-107); Estimated CRCL calculation 150 ml/min; Estimated Glomerular Filt Rate > 60; Glucose 122 mg/dL (65-110); Lipase 40 U/L (23-300); Potassium 4.3 mmol/L (3.4-5.0); Sodium 136 mmol/L (137-145)
[2021-09-21 07:54] LABS: Appearance Urine Clear (Clear); Bilirubin Urine Negative (Negative); Blood Urine 2+ (Negative); Color Urine Yellow (Yellow); Glucose Urine UA Negative (Negative); Ketones Urine Negative (Negative); Leukocyte Esterase Ur 1+ LEU/UL (Negative); Nitrate Urine Negative (Negative); Protein Urine 1+ mg/dL (Negative); Specific Grav Ur 1.025 (1.001-1.035); Urobilinogen Urine 0.2 mg/dL (<2.0)
[2021-09-21 07:59] LABS: Mucus Urine Rare /lpf; RBC Urine 21-50 /hpf (0-2); WBC Urine 21-30 /hpf
--- NOTE | 2021-09-21 08:00 | PM.IMHP ---
H&P: HPI History of Present Illness Date/Time: 09/21/21 08:00 Chief Complaint: Back pain Narrative: Patient is a 31-year-old male with a past medical history of ADHD, anxiety, depression, hyperlipidemia and kidney stones resulting in cystoscopy, lithotripsy, surgery who presented the ED with left back pain x1 week. Patient stated that the pain has been tolerable to where he can not even go to work. However it has just gotten very severe which prompted patient to come to the ED. patient stated on Tuesday he went to urgent care and they diagnosed him with a UTI give him antibiotics. He denies drinking a lot of soda or taking Tums. He did state that his mother does have issues with kidney stones as well. He denies any chest pain, shortness a breath, nausea, vomiting, diarrhea, constipation, sweats, fevers, chills, dizziness, visual changes. Urology has been consulted and will be taking the patient to OR for stent placement. CT of the abdomen and pelvis showed a 5 mm stone in the proximal left ureter with mild left hydronephrosis along with bilateral nonobstructing kidney stones. KUB showed the same. Patient is being admitted to our facility in observation status at this time. Review of Systems Review of Systems: All systems reviewed & are unremarkable except as noted in HPI and below PMFSH Past Medical History Medical History (Updated 09/21/21 @ 13:25 by ANDRE Gomez) Anxiety disorder Attention deficit hyperactivity disorder Calculus of left ureter Depression Hyperlipemia Kidney stones Obsessive compulsive disorder Suspected sleep apnea Patient has yet to have a formal outpatient polysomnogram. Surgical History Surgical History History of cystoscopy History of lithotripsy History of removal of calculus of renal pelvis through percutaneous nephrostomy Family History Family History Mother Diabetes mellitus Kidney stone Father ETOH abuse Liver cancer Social History Social History (Updated 09/21/21 @ 13:23 by ANDRE Gomez) Social History: The patient lives in [place] with his and their dog. He works at a local [employer] in the [employer]. Lifelong nonsmoker. seldom ETOH and edible use. He designates his , Estephania Hanson, as his surrogate decision maker and he wishes to be a full code. Smoking status: Never smoker Alcohol intake: current Drinks per week: 0 Alcohol use details: maybe once a month, if that Substance use type: marijuana Other substance usage details: edibles Living arrangements: with family Occupation/Education: occupation Additional occupation/education comments: [employer] Gender identity (if verbalized by the patient): Male Sexual Orientation (if Verbalized by the Patient): Straight or Heterosexual Spiritual care concerns: No Agree to blood products: Yes Meds Home Medications and Allergies Home Medications Medication Instructions Recorded Confirmed Type ciprofloxacin HCl 500 mg tablet 500 mg PO Q12H 09/21/21 09/21/21 History Allergies Allergy/AdvReac Type Severity Reaction Status Date / Time No Known Allergies Allergy Verified 09/21/21 09:48 Vital Signs Vital Signs - 24 hr 09/21/21 07:21 09/21/21 08:49 09/21/21 09:16 Temperature 97.7 F Pulse Rate 80 81 77 Respiratory Rate 20 20 18 Blood Pressure 151/83 H 142/76 H 137/72 Pulse Oximetry 97 99 99 Oxygen Delivery Room Air 09/21/21 09:32 09/21/21 10:19 Temperature 97.7 F Pulse Rate 62 Respiratory Rate 16 Blood Pressure 143/86 H Pulse Oximetry 98 Oxygen Delivery Room Air Exam Const: General: cooperative, healthy appearing, no acute distress, well developed, alert and awake Nutritional Appearance: well nourished Orientation/consciousness: patient oriented x3 Limitations: no limitations HENMT: Head: normal to inspection
[2021-09-21 08:03] LABS: Add Urine Microscopic? YES
--- NOTE | 2021-09-21 09:25 | PC.NURSE ---
This patient, Timmy Hanson, was admitted to [facility] Room 300-01. Patient/family oriented to hospital policies and general routines including ID bracelet, bed and alarms, visiting hours, pain management, procedures, bathroom and other care routines, personal items, smoking policy, room service/diet, and visiting hours.Report received from Sylvie YAÑEZ. Information on how to activate the Rapid Response Team has been discussed. Patient/Family are encouraged to report perceived risks to care and to ask questions if they do not understand what they are told or what they should do.
--- NOTE | 2021-09-21 12:18 | WPDURCON ---
Assessment and Plan Assessment and plan (1) Urinary tract infection: Qualifiers: Hematuria presence: with hematuria Urinary tract infection type: site unspecified Qualified Code(s): N39.0 - Urinary tract infection, site not specified; R31.9 - Hematuria, unspecified Code(s): N39.0 - Urinary tract infection, site not specified Status: Suspected Assessment and Plan: Continue Ceftriaxone, tailor antibiotics to culture results. (2) Calculus of left ureter: Code(s): N20.1 - Calculus of ureter Status: Acute Assessment and Plan: Plan to go to the OR today with Dr. Cortes: Cystoscopy, left ureteral stent placement and left retrograde pyelogram. Obtain consent. Keep NPO. Will repeat a KUB tomorrow after stent placement to check stone position. (3) Bilateral kidney stones: Code(s): N20.0 - Calculus of kidney Status: Acute Assessment and Plan: We had a long discussion about doing bilateral ESWL's, each kidney one at a time and prevention of kidney stones as well as doing a chronic stone workup with a 24 hour urine and blood work as an outpatient. We will plan to proceed with a left ESWL first. 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 The pain radiates to his left upper quadrant and is accompanied by dysuria and urgency to urinate more than normal. He denies hematuria, nausea, vomiting or straining to urinate. He is a known patient of Dr. Jimenez and has suffered from kidney stones for many years. His most recent surgery was a PCNL with Dr. Marcial at [facility] in 12/2020. It is unclear which kidney. He then had his stent removed on 12/17/[address] Marcial. He had bilateral stents placed prior that on 09/01/20 at [place] with a cystoscopy and retrograde pyelogram. Which was then preceded with an ESWL at [facility] by Dr. Marcial on 09/19/20. He has a WBC of 7.2, creatinine of 0.80, CT scan this admission shows a 5mm stone in the proximal left ureter with mild hydronephrosis and bilateral stones. He has 8 stones in the right kidney measuring up to 19mm and 9 in the left measuring up to 8mm. His UA suggests a UTi, and cultures are pending. He was on Ciprofloxacin x 3 days orally at home, but is now on Ceftriaxone. Review of Systems Cardiovascular: Cardiovascular: Denies chest pain Respiratory: Respiratory: Denies dyspnea Gastrointestinal: Gastrointestinal: Reports abdominal pain, Denies nausea and Denies vomiting Genitourinary: Genitourinary: Denies hematuria, Reports dysuria, Reports flank pain and Reports urinary urgency PMFSH Past Medical History Medical History Anxiety disorder Attention deficit hyperactivity disorder Calculus of left ureter Depression Hyperlipemia Kidney stones Obsessive compulsive disorder Suspected sleep apnea Patient has yet to have a formal outpatient polysomnogram. Surgical History Surgical History History of cystoscopy History of lithotripsy Family History Family History Mother Diabetes mellitus Father ETOH abuse Liver cancer Social History Social History Social History: The patient lives in [place] with his and their dog. He works at a local [employer]. Lifelong nonsmoker. No alcohol or illicit substance abuse. He designates his , Estephania Hanson, as his surrogate decision maker and he wishes to be a full code. Smoking status: Never smoker Alcohol intake: current Drinks
[2021-09-21] MEDS: LACTATED RINGERS 1,000 ML 30 ML IV CONT (13:15)
--- NOTE | 2021-09-21 13:15 | PC.NURSE ---
To OR via bed.
--- NOTE | 2021-09-21 13:35 | WPDANESEPPF ---
Anes - Initial Pre Proc Eval Procedure: Operation Date: 09/21/21 14:30 Proposed Procedures p Cystoscopy, Left Stent Placement - Freedom Cortes MD Date/Time: 09/21/21 13:35 Surgeon: Goran Reynoso MD Pre Op Diagnosis: left kidney stone,uti Patient Data Age: 31 Gender: M Height: 1.83 m Weight: 118.6 kg Last Vital Signs Temp 36.5 C 09/21/21 10:19 Pulse 62 09/21/21 10:19 Resp 16 09/21/21 10:19 BP 143/86 H 09/21/21 10:19 Pulse Ox 98 09/21/21 10:19 O2 Del Method Room Air 09/21/21 09:32 Allergies Allergy/AdvReac Type Severity Reaction Status Date / Time No Known Allergies Allergy Verified 09/21/21 09:48 Home Medications Medication Instructions Recorded Confirmed Type ciprofloxacin HCl 500 mg tablet 500 mg PO Q12H 09/21/21 09/21/21 History Laboratory Tests 09/21/21 09/21/21 09/21/21 07:34 07:34 07:36 WBC 7.2 K/mm3 K/mm3 (4.5-10.0) RBC 4.94 M/mm3 M/mm3 (4.6-6.20) Hgb 14.0 g/dL g/dL (14.0-18.0) Hct 41.0 % L % (42.0-52.0) MCV 83.0 fl fl (80-100) MCH 28.3 pg pg (26-34) MCHC 34.1 g/dl g/dl (32-36) RDW 12.5 % % (11.5-14.5) Plt Count 234 k/mm3 k/mm3 (150-375) MPV 8.8 fl fl (7.4-10.4) Immature Gran % (Auto) 0.1 % % (0-0.5) Neut % (Auto) 51.3 % % (45.5-73.1) Lymph % (Auto) 40.0 % % (18.3-44.2) [place] % (Auto) 6.6 % % (2.6-8.5) Eos % (Auto) 1.2 % % (0-4.4) Baso % (Auto) 0.8 % % (0.2-1.2) Lymph # (Auto) 2.89 K/mm3 K/mm3 (0.9-3.2) [place] # (Auto) 0.5 K/mm3 K/mm3 (0.1-0.6) Eos # (Auto) 0.1 K/mm3 K/mm3 (0-0.3) Baso # (Auto) 0.1 K/mm3 K/mm3 (0.0-0.1) Abs Immat Gran (auto) 0.01 K/mm3 K/mm3 (0.00-0.031) Absolute Neuts (auto) 3.7 K/mm3 K/mm3 (1.3-6.7) Absolute Nucleated RBC 0.0 K/mm3 K/mm3 (0.0-0.012) Nucleated RBC % 0.0 % % (0.0-0.2) Sodium 136 mmol/L L mmol/L (137-145) Potassium 4.3 mmol/L mmol/L (3.4-5.0) Chloride 105 mmol/L mmol/L (98-107) Carbon Dioxide 27 mmol/L mmol/L (22-30) Anion Gap 4 mmol/L L mmol/L (8-16) BUN 23 mg/dL H mg/dL (9-20) Creatinine 0.80 mg/dL mg/dL (0.7-1.3) Estim Creat Clear Calc 150 ml/min ml/min Estimated GFR > 60 (59 - ) Glucose 122 mg/dL H mg/dL (65-110) Calcium 9.0 mg/dL mg/dL (8.4-10.2) Total Bilirubin 0.4 mg/dL mg/dL (0.2-1.3) AST 39 U/L U/L (17-59) ALT 54 U/L H U/L (6-50) Alkaline Phosphatase 64 U/L U/L (38-126) Total Protein 7.0 g/dL g/dL (6.3-8.2) Albumin 4.4 g/dL g/dL (3.5-5.1) Lipase 40 U/L U/L (23-300) Urine Color Yellow (Yellow) Urine Appearance Clear (Clear) Urine pH 6.0 (5.0-9.0) Ur Specific [place] 1.025 (1.001-1.035) Urine Protein 1+ mg/dL H mg/dL (Negative) Urine Glucose (UA) Negative mg/dL mg/dL (Negative) Urine Ketones Negative mg/dL mg/dL (Negative) Ur Blood (Man) 2+ H (Negative) Urine Nitrate Negative (Negative) Urine Bilirubin Negative (Negative) Urine Urobilinogen 0.2 mg/dL mg/dL (<2.0) Leukocyte Esterase Rfl 1+ GABINO/UL H GABINO/UL (Negative) Urine RBC 21-50 /hpf H /hpf (0-2) Urine WBC 21-30 /hpf H /hpf Urine Mucus Rare /lpf /lpf Patient hx anesthesia problems: none Family hx anesthesia problems: none Results Review: All pre-operative results and documents have been reviewed as part of the pre-operative evaluation. [facility] Past Medical History Medical History Anxiety disorder Attention deficit hyperactivity di
--- NOTE | 2021-09-21 14:07 | WPDHPUPDATE1 ---
History and Physical Update Update Date/Time: 09/21/21 14:07 History and Physical has been reviewed, including an updated exam of the patient. There are NO changes in the patient's condition. Risks, benefits, and alternatives have been discussed and questions answered. Patient agrees to proceed with procedure.
--- NOTE | 2021-09-21 14:23 | W.PM.PROC2 ---
Procedure Note - Detailed Date of Procedure 09/21/21 Pre-op Diagnosis Left ureteral stone, abnormal urinalysis Post-op Diagnosis Same Procedure Performed Cystoscopy, left retrograde pyelogram, left ureteral stent placement Surgeon Freedom Cortes MD Anesthesia General Indications This is a gentleman with a proximal left ureteral stone. He has renal stones as well. He has abnormal urinalysis. He is here today for a stent he understands risks of bleeding, infection, damage to urinary tract, inability to place the stent. He also understands I will not be removing the stone. Findings Bilateral kidney stones. Left proximal stone. All stones visible on KUB Description of Procedure He has correctly identified. Informed consent obtained. From the operating room. He was given general anesthesia. He was placed in dorsal lithotomy position. Was prepped and draped sterile fashion. Time-out performed. Cystoscopy revealed a normal-appearing bladder. No tumors or stones or other abnormalities. All stones were visible on KUB. He had a large renal pelvic stone on the right. He has a ureteral stone on the left as well as renal stones on the left. I did retrograde pyelogram on the left. No hydroureter. He has hydronephrosis proximal to the UPJ stone on the left. The stone could be seen as a filling defect once contrast was applied. I placed a guidewire to the kidney. I then placed a 4.8 variable length stent. Proximal coil in renal pelvis. Distal coil in the bladder. The bladder is drained. He was awakened transferred to PACU stable condition. Implants Ureteral stent Estimated Blood Loss 2 Drains Yes (Ureteral stent) Pathology None sent Complications No immediate complications Condition Stable
--- NOTE | 2021-09-21 15:35 | PC.NURSE ---
Back from OR via stretcher.
[2021-09-21] MEDS: OXYBUTYNIN CHLORIDE 5 MG TABLET PO (16:51)
[2021-09-21] MEDS: PHENAZOPYRIDINE HCL 100 MG TABLET 200 MG PO (16:52)
[2021-09-21] MEDS: HYDROcodone/acetaminophen (*CRX) 5-325 MG TABLET 1 TAB PO (18:22)
[2021-09-22] MEDS: HYDROcodone/acetaminophen (*CRX) 5-325 MG TABLET 1 TAB PO ×2 (05:30→09:48)
[2021-09-22 06:00] VITALS: BP 147/77; PULSE 90; RESP 16; TEMP 36.3; O2SAT 95
--- NOTE | 2021-09-22 07:23 | PM.IMPN ---
Progress Note: A&P Assessment and Plan (1) Hydronephrosis of left kidney: Code(s): N13.30 - Unspecified hydronephrosis Status: Acute Assessment and Plan: From an obstructing kidney stone Urology consulted thank you Trend urine output Pain medications on board (2) Bilateral kidney stones: Code(s): N20.0 - Calculus of kidney Status: Acute Assessment and Plan: CT of abd and pel show bilateral kidney stones KUB also found kidney stones Urology consulted thank you Stent placement from 09/21/21 Unknown of cause (3) Calculus of left ureter: Code(s): N20.1 - Calculus of ureter Status: Acute Assessment and Plan: See above (4) Abnormal urinalysis: Code(s): R82.90 - Unspecified abnormal findings in urine Status: Acute Assessment and Plan: UA shows some signs of infection Continue Ceftriaxone Await urine culture Adjust therapy accordingly Time Spent With Patient Time with patient: Greater than 35 minutes Subjective Date/time seen: 09/22/21 07:23 Interval history: 09/22/21 09/21/21? 08:00 Patient is a 31-year-old male with a past medical history of ADHD, anxiety, depression, hyperlipidemia and kidney stones resulting in cystoscopy, lithotripsy, surgery who presented the ED with left back pain x1 week.? Patient stated that the pain has been tolerable to where he can not even go to work.? However it has just gotten very severe which prompted patient to come to the ED. patient stated on Tuesday he went to urgent care and they diagnosed him with a UTI give him antibiotics.? He denies drinking a lot of soda or taking Tums.? He did state that his mother does have issues with kidney stones as well.? He denies any chest pain, shortness a breath, nausea, vomiting, diarrhea, constipation, sweats, fevers, chills, dizziness, visual changes.? Urology has been consulted and will be taking the patient to OR for stent placement.? CT of the abdomen and pelvis showed a 5 mm stone in the proximal left ureter with mild left hydronephrosis along with bilateral nonobstructing kidney stones.? KUB showed the same. Review of Systems Review of Systems: All systems reviewed & are unremarkable except as noted in HPI and below Exam Const: General: cooperative, healthy appearing, no acute distress, well developed, alert and awake Nutritional Appearance: well nourished Orientation/consciousness: patient oriented x3 Limitations: no limitations HENMT: Head: normal to inspection Ears: hearing grossly normal bilaterally General nose exam: Normal external nose present Mouth: Yes Normal oral and palatal mucosa present, Yes lip normal and Yes tongue normal Teeth and gingiva: abnormal tooth and associated gingiva and poor dentition Eyes: General: appearance normal, both eyes and all related structures Neck: Neck: normal visual inspection, full ROM, trachea midline and supple Chest: Chest palpation & inspection: normal inspection of the chest Resp: Effort & Inspection: normal respiratory effort and able to speak in complete sentences Auscultation: clear to auscultation bilaterally Cardio: Jugular venous distension: no JVD Rate: regular rate Rhythm: regular rhythm Heart sounds: S1 normal heart sound present and S2 normal heart sound present Peripheral pulses: Peripheral pulses 2+ throughout GI: Inspection: normal to inspection Auscultation: normal bowel sounds : General: Yes CVA tenderness on the left Back/Spine/Pelvis: Back: CVA tenderness Skin: General skin exam: normal color and no rashes or lesions noted Lesions: no lesions Rashes: no rashes Trauma: no lacerations or abrasions Wounds: no wounds Hair: normal Nails: normal Neuro: General: patient oriented x3, moves all extremities and Normal light touch and pain sensation Speech: normal speech Gait exam (Neuro): Normal gait present Extrem: General: no
[2021-09-22] MEDS: PHENAZOPYRIDINE HCL 100 MG TABLET 200 MG PO ×2 (08:15→12:21)
[2021-09-22] MEDS: OXYBUTYNIN CHLORIDE 5 MG TABLET PO ×2 (08:15→12:21)
--- NOTE | 2021-09-22 11:00 | PM.DS ---
DS: Admitting Diagnosis Discharge Date 09/22/21 1100 Admitting Diagnosis Obstructing renal calculi DS: Discharge Diagnosis Discharge Diagnosis (1) Hydronephrosis of left kidney: Code(s): N13.30 - Unspecified hydronephrosis Status: Acute Assessment and Plan: From an obstructing kidney stone Urology consulted thank you Trend urine output Pain medications on board (2) Bilateral kidney stones: Code(s): N20.0 - Calculus of kidney Status: Acute Assessment and Plan: CT of abd and pel show bilateral kidney stones KUB also found kidney stones Urology consulted thank you Stent placement from 09/21/21 Unknown of cause (3) Calculus of left ureter: Code(s): N20.1 - Calculus of ureter Status: Acute Assessment and Plan: See above (4) Abnormal urinalysis: Code(s): R82.90 - Unspecified abnormal findings in urine Status: Acute Assessment and Plan: UA shows some signs of infection Continue Ceftriaxone Await urine culture Adjust therapy accordingly DS: Summary Hospital Course Hospital Course: Patient is a 31-year-old male with quite an extensive history kidney stones along with anxiety disorder, attention deficit disorder, hyperlipidemia and depression who presented to the ED with left-sided flank pain x1 week. Urology was consult to patient and had stents placed. Urine culture was also obtained. UA did present as looking infectious. Patient was started on IV Rocephin. Urine culture is still pending at this time. Patient is feeling well and is ready to go. He does report having some pink colored urine which is normal and he also reports some pain in his left flank as well. He is to follow up with Dr. Morel on the which the appointment is already scheduled for him. He currently denies any other complaints including chest pain, shortness of breath, nausea, vomiting, diarrhea, constipation, weakness or fatigue. Patient is stable for discharge for labs and vital signs at this time. Status at Discharge Functional status at discharge: independent ambulation Overall status at discharge: patient is progressing back to baseline Time Spent with Patient Time attestation: Total time spent providing and/or coordinating discharge services: 37 minutes Time spent: Greater than 30 minutes Specific discharge activities: Diagnostic testing, chart review, developing a treatment plan, education, care coordination documentation, physical exam, result review Exam Const: General: cooperative, healthy appearing, no acute distress, well developed, alert and awake Nutritional Appearance: well nourished Orientation/consciousness: patient oriented x3 Limitations: no limitations HENMT: Head: normal to inspection Ears: hearing grossly normal bilaterally General nose exam: Normal external nose present Mouth: Yes Normal oral and palatal mucosa present, Yes lip normal and Yes tongue normal Teeth and gingiva: abnormal tooth and associated gingiva and poor dentition Eyes: General: appearance normal, both eyes and all related structures Neck: Neck: normal visual inspection, full ROM, trachea midline and supple Chest: Chest palpation & inspection: normal inspection of the chest Resp: Effort & Inspection: normal respiratory effort and able to speak in complete sentences Auscultation: clear to auscultation bilaterally Cardio: Jugular venous distension: no JVD Rate: regular rate Rhythm: regular rhythm Heart sounds: S1 normal heart sound present and S2 normal heart sound present Peripheral pulses: Peripheral pulses 2+ throughout GI: Inspection: normal to inspection Auscultation: normal bowel sounds : General: Yes CVA tenderness on the left Back/Spine/Pelvis: Back: CVA tenderness Skin: General skin exam: normal color and no rashes or lesions noted Lesions: no lesions Rashes: no rashes Trauma: no lacerations or ab
--- NOTE | 2021-09-22 12:39 | WPDANESPN ---
Anes - Prog Note Post-Op Date/Time: 09/22/21 10:39 Cardiovascular status: normal Respiratory status: normal Airway patency: baseline Mental status: baseline Post-Op hydration status: normal Vital Signs: Last Vital Signs Temp 97.3 F L 09/22/21 06:00 Pulse 90 09/22/21 06:00 Resp 16 09/22/21 06:00 BP 147/77 H 09/22/21 06:00 Pulse Ox 95 09/22/21 06:00 O2 Del Method Room Air 09/21/21 15:25 O2 Flow Rate 8 09/21/21 14:45 Pain Score (VAS): 0 I/O: Intake & Output 09/21/21 09/22/21 09/22/21 23:59 07:59 15:59 Intake Total 450 150 530 Output Total 1100 200 Balance 450 -950 330 Laboratory Tests 09/21/21 07:34 09/21/21 07:34 Post-procedural complaints: none Patient Feedback: Patient satisfied with anesthetic care.
--- NOTE | 2021-09-22 15:50 | WPDUROPN2 ---
Progress Note: A&P Assessment and Plan (1) Bilateral kidney stones: Code(s): N20.0 - Calculus of kidney Status: Acute Assessment and Plan: He has an extensive history of stones requiring both ESWL and PCNL with Dr. Marcial. He will f/u with Dr. Marcial next week to discuss his plan for further stone resolution. (2) Abnormal urinalysis: Code(s): R82.90 - Unspecified abnormal findings in urine Status: Acute Assessment and Plan: Urine Culture pending, ok to discharge home on Bactrim. Tailor antibiotics to culture resutls. (3) Calculus of left ureter: Code(s): N20.1 - Calculus of ureter Status: Acute Assessment and Plan: Left stent in place, f/u with Dr. Marcial as planned. Subjective Subjective Date/Time Seen: 09/22/21 15:50 Cystoscopy, left stent, left retrograde pyelogram. The patient is tolerating his diet and activity well, he is having some stent pain that is not well controlled with [place]. He has had stents in the past and states he typically doesn't do well with them. He is urinating well and without difficulty. Post Op day: 1 Review of Systems Cardiovascular: Cardiovascular: Denies chest pain Respiratory: Respiratory: Reports no additional respiratory complaints Gastrointestinal: Gastrointestinal: Denies abdominal pain, Denies nausea and Denies vomiting Genitourinary: Genitourinary: Reports hematuria, Reports dysuria, Reports flank pain, Denies urinary frequency, Denies urinary hesitancy, Denies urinary incontinence and Denies urinary urgency Exam Const: General: cooperative Resp: Effort & Inspection: normal respiratory effort Cardio: Rate: regular rate GI: GI Palp: Yes Soft to palpation and No Tenderness to palpation present (GI) Extrem: Right lower extremity: no edema Left lower extremity: no edema Objective Data Vital Signs Vital Signs: Vital Signs - 24 hr 09/21/21 22:00 09/22/21 06:00 Temperature 97.5 F L 97.3 F L Pulse Rate 93 90 Respiratory Rate 18 16 Blood Pressure 152/78 H 147/77 H Pulse Oximetry 97 95 Intake/Output Intake/Output: Intake & Output 09/19/21 09/20/21 09/21/21 09/22/21 23:59 23:59 23:59 23:59 Intake Total 1650 920 Output Total 1300 Balance 1650 -380 Meds/Results Radiology Results: ITS Impressions Abdomen/Pelvis CT 09/21/21 08:14 IMPRESSION: 1. 5 mm stone in proximal left ureter with mild left hydronephrosis. 2. Bilateral nonobstructing kidney stones. Abdomen X-Ray 09/21/21 08:22 IMPRESSION: 1. 5 mm stone in proximal left ureter. 2. Bilateral kidney stones. Retrograde Pyelogram 09/21/21 14:25 IMPRESSION: Fluoroscopic documentation of cystography, retrograde pyelogram, and left stent placement. Quality VTE Prophylaxis VTE prophylaxis: mechanical ordered
== END 2021-09-22 13:25 | disposition home or self-care (01) ==
LOC: ANHED 08:23 → ANH3MEDSUR 08:58
PROVIDERS: Urology; Admitting Provider Internal Medicine; Emergency Provider Emergency Medicine; Visit Provider Nurse Practitioner
PROC: (CPT 52352; principal; 2021-09-21 14:30)
DX: N13.2 Hydronephrosis with renal and ureteral calculous obstruction (principal); R82.90 Unspecified abnormal findings in urine; F90.9 Attention-deficit hyperactivity disorder, unspecified type; F32.A Depression, unspecified; F41.9 Anxiety disorder, unspecified; F42.8 Other obsessive-compulsive disorder
CPT/HCPCS: 52332; 36415; 74018; 74176; 74420; 80053; 81001; 83690; 85025; 87086; 96361; 96365; 96375; 99285; A9270; C1769; C2617; G0378; J0696; J1100; J1885; J2250; J2405; J2704; J3010; J7030; J7120; Q9966

== ENCOUNTER 2021-12-29 11:14 | Outpatient (CLI) | payer OTHER, SELFPAY ==
--- NOTE | ~2021-12-29 | CT_ITS ---
EXAMINATION: CT abdomen pelvis wo con DATE: 12/29/2021 11:34 INDICATION: Right ureteral stone TECHNIQUE: Computed tomography (CT) of the abdomen and pelvis was performed without intravenous contr ast. The dose-length product (DLP) was 1086.74 mGy-cm. Automated exposure control and iterative recon struction technique were employed. COMPARISON: 09/21/2021 FINDINGS: Minimal dependent atelectasis is present in the lung bases. The heart size is normal. The l iver, spleen, pancreas, gallbladder, and adrenal glands are normal. There are two nonobstructing ston es of the left kidney which measure 2 mm and 1 mm. Nonobstructing stones of the right kidney measure up to 7 mm. No stones are present in the ureters or bladder. There is no hydronephrosis or hydrourete r. No pathologically enlarged abdominal or pelvic lymph nodes are identified. There is no free intrap eritoneal gas or evidence of bowel obstruction. There is mild lumbar spondylosis. IMPRESSION: 1. Nonobstructing bilateral nephrolithiasis. Reviewed, dictated and finalized at location A.
--- NOTE | ~2021-12-29 | XR_ITS ---
EXAMINATION: XR abdomen/kub 1V INDICATION: Nephrolithiasis TECHNIQUE: Supine views of the abdomen were obtained on 2 radiographs. COMPARISON: 09/21/2021 FINDINGS: A 12 mm stone previously seen in the left kidney lower pole is no longer identified. There is also been interval treatment of stones previously identified in the right renal pelvis and proxima l left ureter. A 5 mm stone is seen in the lower pole of the right kidney. Punctate stones are noted in the left kidney. The bowel gas pattern is normal. There is mild elevation of the right hemidiaphra gm. A bone island is noted in the proximal left femur. IMPRESSION: 1. Interval treatment of bilateral kidney stones and a left proximal ureteral stone with small residu al stones in the kidneys. Reviewed, dictated and finalized at location A. IMPRESSION: 1. Interval treatment of bilateral kidney stones and a left proximal ureteral s tone with small residual stones in the kidneys.
== END 2021-12-29 11:15 ==
PROVIDERS: PCP Urology; Visit Provider Urology
DX: N20.1 Calculus of ureter (principal); N20.0 Calculus of kidney
CPT/HCPCS: 74018; 74176

== ENCOUNTER → 2022-03-10 12:48 | Outpatient (CLI) | payer OTHER, SELFPAY ==
--- NOTE | ~2022-03-10 | XR_ITS ---
EXAM: XR abdomen/kub 1V DATE: 03/10/2022 13:09 HISTORY: follow up right side kidney stones . COMPARISON: 12/29/2021. FINDINGS: Clear lung bases. Normal bowel gas pattern. Enlarged liver and spleen. Bilateral renal sto alma are less well visualized in the current examination. Regional bones and soft tissues normal for a ge. IMPRESSION: Hepatosplenomegaly. Bilateral nephrolithiasis. Reviewed, dictated and finalized at location K. H TESTER
--- NOTE | ~2022-03-10 | US_ITS ---
US renal BI 03/10/2022 13:06 Procedure: Realtime transabdominal ultrasound of the kidneys and bladder. Indication: Kidney stones. Hematuria. Comparison: CT dated 12/29/2021 Findings: Renal echotexture is normal bilaterally without hydronephrosis, contour deforming mass. The re is an echogenic focus in the upper pole of the right kidney with posterior shadowing measuring 8 m m, consistent with nonobstructing nephrolithiasis. The right kidney measures 12.4 cm and left kidney measures 11.3 cm. Bladder within normal limits. Impression: 1: Nonobstructing right renal stone at the upper pole measuring 8 mm. Reviewed, dictated and finalized at location A. [employer]GER Impression: 1: Nonobstructing right renal stone at the upper pole measuring 8 mm.
== END ==
PROVIDERS: PCP Urology; Visit Provider Urology
DX: N20.0 Calculus of kidney (principal); R16.2 Hepatomegaly with splenomegaly, not elsewhere classified
CPT/HCPCS: 74018; 76775

== ENCOUNTER → 2022-03-20 07:45 | Outpatient (CLI) | payer OTHER, SELFPAY ==
--- NOTE | ~2022-03-20 | US_ITS ---
Abdominal Sonogram: Real-time sonographic imaging of the abdomen was performed. Clinical History: Hepatomegaly, splenomegaly Findings: The liver appears echogenic, with no evidence of mass lesion or bile duct dilatation. It m easures 20 cm in length. Main portal vein demonstrates normal direction of flow. The spleen is measur es 14.5 cm in length. The gallbladder is well distended, without definite stone. Probable 3 mm gallb ladder wall polyp. The common bile duct measures 4 mm. The visualized pancreas, aorta, and IVC are u nremarkable. The right kidney measures 11.9 cm in length and the left kidney measures 12.0 cm. Ther e is no hydronephrosis or renal calculus. Impression: Diffuse fatty infiltration of the liver. Hepatosplenomegaly. Small gallbladder wall polyp. Reviewed, dictated and finalized at location [] HIATRIC ATTENDANT Impression: Diffuse fatty infiltration of the liver. Hepatosplenomegaly. Small gallbladder wall polyp.
== END ==
PROVIDERS: PCP Emergency Medicine; Visit Provider Emergency Medicine
DX: R16.2 Hepatomegaly with splenomegaly, not elsewhere classified (principal); R74.8 Abnormal levels of other serum enzymes; K76.0 Fatty (change of) liver, not elsewhere classified; K82.4 Cholesterolosis of gallbladder
CPT/HCPCS: 76700

== ENCOUNTER 2022-08-04 08:17 | Day surgery (SDC) | payer OTHER, SELFPAY ==
[2022-08-04] VITALS (9 sets, daily range): BP systolic 122–151; BP diastolic 70–80; PULSE 79–98; RESP 12–22; TEMP 36.5–37.3; O2SAT 93–100
--- NOTE | ~2022-08-04 | XR_ITS ---
EXAMINATION: XR abdomen/kub 1V DATE: 08/04/2022 10:13 INDICATION: Left ureteral stone. TECHNIQUE: A supine view of the abdomen on 2 radiographs was obtained. COMPARISON: CT abdomen and pelvis 08/04/2022 FINDINGS: There are no dilated loops of bowel. There are least 3 stones in right kidney measuring up to 15 mm. There is a 14 x 7 mm stone at left ureteropelvic junction. There is a 10 x 8 mm stone in le ft kidney. IMPRESSION: 1. Stones in the kidneys and at left ureteropelvic junction. Reviewed, dictated and finalized at location A.
--- NOTE | ~2022-08-04 | CT_ITS ---
Non-contrast CT scan of the Abdomen and Pelvis Clinical indication: Left flank pain Technique: 2.5 mm axial scans were obtained through the abdomen and pelvis without intravenous or or al contrast. Dose reduction technique was used on this scan by utilizing automated exposure control a nd iterative reconstruction technique. The dose-length product (DLP) was 391.72 mGy-cm. COMPARISON: 12/29/2021 Findings: Images through the lung bases reveal no abnormalities. There is a 1.3 x 0.8 cm stone at the very proximal left ureter, with Hounsfield units in the range of 1000. There is an additional nonobstructing 9 mm stone in the dilated left renal pelvis. There is mi ld to moderate left hydronephrosis. There is a 1.5 x 0.9 cm stone in the right renal pelvis, with Dorothy nsfield units in the range of 950. There is probable minimal right hydronephrosis. There are multiple additional smaller nonobstructing right renal stones in the right renal collecting system. No defini te right ureteral stones seen. The liver, spleen, pancreas, gallbladder, and adrenals appear normal. There is no aortic aneurysm. There is no evidence of bowel obstruction. Images through the pelvis were performed. There is no evidence of ascites or lymphadenopathy. Urinary bladder unremarkable. Prostate gland and seminal vesicles are unremarkable. Impression: 1.3 x 0.8 cm obstructing stone at the right proximal left ureter, with moderate left hydronephrosis. Nonobstructing 9 mm stone in the dilated left renal pelvis. 1.5 x 0.9 cm on the right renal pelvis with possible minimal right hydronephrosis. Multiple additiona l smaller nonobstructing right renal stones are also present. No right ureteral stone. Reviewed, dictated and finalized at location . Impression: 1.3 x 0.8 cm obstructing stone at the right proximal left ureter, with moderate left hydronephrosis. Nonobstructing 9 mm stone in the dilated left renal pelvis. 1.5 x 0.9 cm on the right renal pelvis with possible minimal right hydronephros is. Multiple additional smaller nonobstructing right renal stones are also pres ent. No right ureteral stone.
--- NOTE | ~2022-08-04 | XR_ITS ---
EXAMINATION: XR retrograde pyelo w/stent LT DATE: 08/04/2022 14:55 INDICATION: Left nephrolithiasis and ureteral stent placement TECHNIQUE: 6 fluoroscopic images of the abdomen and pelvis were obtained during procedure performed kristy Martino. Radiologist was not present for the imaging or procedure. The amount of fluoroscopy time used during this procedure was 0.4 minutes. COMPARISON: CT dated 08/04/2022 FINDINGS: The large bilateral renal stones seen at the bilateral renal pelvises sees in the lower pole of the r ight kidney are evident on the nurse transition fluoroscopic image. Subsequent images demonstrate retrograde con trast injection extending along the normal caliber left ureter and into the left renal collecting sys tem. Central lucent filling defects within the left renal pelvis corresponding to the renal stone. Nails bsequent images demonstrate placement of a left internal ureteral stent with loops formed in upper po le calyx of the left kidney and in the bladder. The stone is unable to be distinguished from small am ount residual contrast in the collecting system on the final images, unclear whether the stone remain s in place or has been extracted. IMPRESSION: 1. Bilateral nephrolithiasis with placement of a left internal ureteral stent which is in expected po sition. It is unclear whether the left renal stone remains in place or has been extracted. Correlate with procedure note for further detail. Reviewed, dictated and finalized at location B. IMPRESSION: 1. Bilateral nephrolithiasis with placement of a left internal ureteral stent w hich is in expected position. It is unclear whether the left renal stone remain s in place or has been extracted. Correlate with procedure note for further det ail.
[2022-08-04 08:39] LABS: Basophils Absolute Auto 0.1 K/mm3 (0.0-0.1); Basophils Percent Auto 0.4 % (0.2-1.2); Eosinophils Absolute Auto 0.1 K/mm3 (0-0.3); Eosinophils Percent Auto 0.3 % (0-4.4); Hematocrit 46.2 % (42.0-52.0); Hemoglobin 15.9 g/dL (14.0-18.0); Immature Granulocyte Absolute 0.06 K/mm3 (0.00-0.031); Immature Granulocyte Percent A 0.4 % (0-0.5); Lymphocytes Absolute Auto 2.43 K/mm3 (0.9-3.2); Lymphocytes Percent Auto 15.4 % (18.3-44.2); Mean Corpuscular HGB Conc 34.4 g/dl (32-36); Mean Corpuscular Hemoglobin 29.1 pg (26-34); Mean Corpuscular Volume 84.5 fl (80-100); Mean Platelet Volume 8.7 fl (7.4-10.4); Monocytes Absolute Auto 0.7 K/mm3 (0.1-0.6); Monocytes Percent Auto 4.4 % (2.6-8.5); Neutrophils Absolute Auto 12.5 K/mm3 (1.3-6.7); Neutrophils Percent Auto 79.1 % (45.5-73.1); Platelet Count Result 246 k/mm3 (150-375); Red Blood Count 5.47 M/mm3 (4.6-6.20); Red Cell Distribution Width 12.1 % (11.5-14.5); White Blood Count 15.8 K/mm3 (4.5-10.0)
[2022-08-04 08:41] LABS: Appearance Urine Clear (Clear); Bacteria Urine None Seen /hpf; Bilirubin Urine Negative (Negative); Blood Urine 2+ (Negative); Color Urine Yellow (Yellow); Glucose Urine UA Negative (Negative); Ketones Urine Negative (Negative); Leukocyte Esterase Ur 2+ LEU/UL (Negative); Nitrate Urine Negative (Negative); Non Pathogenic Casts 0-2; Protein Urine Trace mg/dL (Negative); Specific Grav Ur 1.011 (1.001-1.035); Squamous Epithelial Cell Urine Occasional /hpf (Few); Urobilinogen Urine 0.2 mg/dL (<2.0); WBC Urine 51-100 /hpf
[2022-08-04 08:54] LABS: Alanine Aminotransferase 41 U/L (6-50); Albumin Level 4.8 g/dL (3.5-5.1); Alkaline Phosphatase 61 U/L (38-126); Anion Gap 10 mmol/L (8-16); Aspartate Amino Transferase 28 U/L (17-59); Bilirubin,Total 0.6 mg/dL (0.2-1.3); Blood Urea Nitrogen 19 mg/dL (9-20); Calcium 9.3 mg/dL (8.4-10.2); Carbon Dioxide 24 mmol/L (22-30); Chloride 107 mmol/L (98-107); Estimated CRCL calculation 169 ml/min; Estimated Glomerular Filt Rate > 60; Glucose 112 mg/dL (65-110); Lipase 53 U/L (23-300); Potassium 4.2 mmol/L (3.4-5.0); Sodium 141 mmol/L (137-145)
[2022-08-04 09:00] LABS: Add Urine Microscopic? YES
--- NOTE | 2022-08-04 09:00 | ED.ABDPAIN ---
HPI - Abdominal Pain General Chief Complaint: Abdominal Pain Stated Complaint: left flank pain with hx of kidney stones Time Seen by Provider: 08/04/22 08:25 History of Present Illness HPI narrative: Patient with history of kidney stones presenting with severe pain to the left flank that started this several hours ago. No nausea or vomiting, has discomfort with urinating. Related Data Allergies Allergy/AdvReac Type Severity Reaction Status Date / Time No Known Allergies Allergy Verified 08/04/22 12:53 Review of Systems Review of Systems: CONST: No fever. HEENT: No sore throat C/V: No chest pain RESP: No cough GI: Flank pain : Dysuria M/S: No joint pain. SKIN: No rash. NEURO: [No headache or focal numbness or weakness] PSYCH: [No depression] FOR[facility]LY [facility] Past Medical History Medical History Anxiety disorder Attention deficit hyperactivity disorder Calculus of left ureter Depression Hyperlipemia Kidney stones Obsessive compulsive disorder Suspected sleep apnea Patient has yet to have a formal outpatient polysomnogram. Surgical History Surgical History History of cystoscopy History of lithotripsy History of removal of calculus of renal pelvis through percutaneous nephrostomy Family History Family History Mother Diabetes mellitus Kidney stone Father ETOH abuse Liver cancer Social History Social History Social History: The patient lives in [place] with his and their dog. He works at a local [employer] in the [employer]. Lifelong nonsmoker. seldom ETOH and edible use. He designates his , Estephania Hanson, as his surrogate decision maker and he wishes to be a full code. Smoking status: Never smoker Alcohol intake: current Drinks per week: 0 Alcohol use details: maybe once a month, if that Substance use type: marijuana Other substance usage details: edibles Living arrangements: with family Occupation/Education: occupation Additional occupation/education comments: [employer] Gender identity (if verbalized by the patient): Male Sexual Orientation (if Verbalized by the Patient): Straight or Heterosexual Spiritual care concerns: No Agree to blood products: Yes Exam Narrative: EXAMINATION OF ORGAN SYSTEMS/BODY AREAS: Constitutional: Vital signs per nursing GENERAL: Appears uncomfortable in bed HEAD: Normal with no signs of head trauma. EYES: EOMI, conjunctiva normal ENT: Hearing grossly intact LUNGS: Nonlabored breathing. HEART: [Regular rate and rhythm] ABD: [Soft], [nontender to palpation] EXT: Normal range of motion SKIN: [No rashes or lesions.] NEURO: [Alert and oriented x 3. No gross focal sensory or strength deficits.] PSYCH: Normal affect Course Vital Signs Vital signs: Vital Signs Temperature 97.7 F 08/04/22 08:20 Pulse Rate 98 08/04/22 08:20 Respiratory Rate 18 08/04/22 08:20 Blood Pressure 145/72 H 08/04/22 08:20 Pulse Oximetry 98 08/04/22 08:20 Oxygen Delivery Room Air 08/04/22 08:20 Temperature 99.0 F 08/04/22 14:47 Pulse Rate 82 08/04/22 16:10 Respiratory Rate 12 08/04/22 16:10 Blood Pressure 132/80 08/04/22 16:10 Pulse Oximetry 93 08/04/22 15:30 Oxygen Delivery Room Air 08/04/22 16:10 Oxygen Flow Rate 8 08/04/22 15:00 MDM - Abdominal Pain MDM Narrative Medical decision making narrative: ED COURSE AND MEDICAL DECISION MAKINyoM presenting to the emergency department for acute flank pain, symptoms are concerning for likely renal colic versus pyelonephritis. Urinalysis is ordered. Morphine ordered. CT scan of the abdomen/pelvis is ordered. Labs are remarkable for: Leukocytosis of 15.8, urinalysis consistent with UTI with large amount of WBCs and leukocyte esterase. CT scan of th
[2022-08-04] MEDS: MORPHINE SULFATE (*CRX) 4 MG/ML INJ IV PUSH ×2 (09:31→13:40)
[2022-08-04] MEDS: LACTATED RINGERS 1,000 ML 999 ML IV CONT (10:07)
--- NOTE | 2022-08-04 12:18 | WPDURCON ---
Assessment and Plan Assessment and plan (1) Bilateral kidney stones: Code(s): N20.0 - Calculus of kidney Status: Acute Assessment and Plan: No intervention today. He will f/u with Dr. Marcial next week. (2) Abnormal urinalysis: Code(s): R82.90 - Unspecified abnormal findings in urine Status: Acute Assessment and Plan: Culture pending, Rocephin given in ER. Will plan to send home on 7 days of Bactrim, will tailor culture results to culture sensitivity. (3) Calculus of left ureter: Code(s): N20.1 - Calculus of ureter Status: Acute Assessment and Plan: Obtain Consent: Cystoscopy, left ureteral stent placement, left retrograde pyelgoram. Keep NPO. Plan to go to the OR this afternooon and then discharge home afterward if patient does well in recovery. He will follow up with Dr. Marcial to discuss a left ESWL for definitive stone managment once infection resolves. Urology Consult Note HPI Date Seen: 08/04/22 Time Seen: 12:18 Primary Care Provider: Amanuel Smiley MD Consult Narrative Reason for consult: Left Ureteral Stone Narrative: Timmy Hanson is a 32 year old male who presented to the ER today with acute left flank pain that radiates to the LLQ. He denies nausea, vomiting, hematuria or dysuria. He has a history of stones and has had surgery multiple times for his obstructive stones with our group. He normally see's Dr. Marcial. He has a WBC of 15.8, creatinine of 0.7 and a UA that is suggestive of a UTI. His CT scan shows a 1.3cm left UPJ stone as well as bilateral stones. KUB is positive for the UPJ stone and a urine culture is pending. He is afebrile, but reports the chills. He was given a dose of Ceftriaxone in the ER. Review of Systems Cardiovascular: Cardiovascular: Denies chest pain Gastrointestinal: Gastrointestinal: Reports abdominal pain, Denies nausea and Denies vomiting Genitourinary: Genitourinary: Denies hematuria, Denies dysuria, Reports flank pain, Denies urinary frequency and Denies urinary urgency PMFSH Past Medical History Medical History Anxiety disorder Attention deficit hyperactivity disorder Calculus of left ureter Depression Hyperlipemia Kidney stones Obsessive compulsive disorder Suspected sleep apnea Patient has yet to have a formal outpatient polysomnogram. Surgical History Surgical History History of cystoscopy History of lithotripsy History of removal of calculus of renal pelvis through percutaneous nephrostomy Family History Family History Mother Diabetes mellitus Kidney stone Father ETOH abuse Liver cancer Social History Social History Social History: The patient lives in [place] with his and their dog. He works at a local [employer] in the [place]. Lifelong nonsmoker. seldom ETOH and edible use. He designates his , Estephania Hanson, as his surrogate decision maker and he wishes to be a full code. Smoking status: Never smoker Alcohol intake: current Drinks per week: 0 Alcohol use details: maybe once a month, if that Substance use type: marijuana Other substance usage details: edibles Living arrangements: with family Occupation/Education: occupation Additional occupation/education comments: [employer] Gender identity (if verbalized by the patient): Male Sexual Orientation (if Verbalized by the Patient): Straight or Heterosexual Spiritual care concerns: No Agree to blood products: Yes Meds Home Medications and Allergies Home Medications Medication Instructions Recorded Confirmed Type hydroxyzine HCl 25 mg tablet 25 mg PO TID PRN anxiety #60 tabs 07/26/22 08/04/22 Rx Allergies Allergy/AdvReac Type Severity Reaction Status Date / Antonio
--- NOTE | 2022-08-04 14:07 | WPDHPUPDATE1 ---
History and Physical Update Update Date/Time: 08/04/22 14:07 History and Physical has been reviewed, including an updated exam of the patient. There are NO changes in the patient's condition. Risks, benefits, and alternatives have been discussed and questions answered. Patient agrees to proceed with procedure.
--- NOTE | 2022-08-04 14:08 | WPDANESEPPF ---
Anes - Initial Pre Proc Eval Procedure: Operation Date: 08/04/22 14:00 Proposed Procedures p Cystoscopy, Left Retrograde Pyelogram, Left Stent Placement - Amanuel Martino MD Date/Time: 08/04/22 14:08 Surgeon: Amanuel Martino MD Pre Op Diagnosis: left flank pain with hx of kidney stones Patient Data Age: 32 Gender: M Height: 1.83 m Weight: 115 kg Last Vital Signs Temp 37.3 C 08/04/22 13:17 Pulse 79 08/04/22 13:17 Resp 16 08/04/22 13:17 BP 130/73 08/04/22 13:17 Pulse Ox 98 08/04/22 13:17 O2 Del Method Room Air 08/04/22 13:17 Allergies Allergy/AdvReac Type Severity Reaction Status Date / Time No Known Allergies Allergy Verified 08/04/22 12:53 Home Medications Medication Instructions Recorded Confirmed Type hydroxyzine HCl 25 mg tablet 25 mg PO TID PRN anxiety #60 tabs 07/26/22 08/04/22 Rx Laboratory Tests 08/04/22 08:28 WBC 15.8 H K/mm3 (4.5-10.0) RBC 5.47 M/mm3 (4.6-6.20) Hgb 15.9 g/dL (14.0-18.0) Hct 46.2 % (42.0-52.0) MCV 84.5 fl (80-100) MCH 29.1 pg (26-34) MCHC 34.4 g/dl (32-36) RDW 12.1 % (11.5-14.5) Plt Count 246 k/mm3 (150-375) MPV 8.7 fl (7.4-10.4) Immature Gran % (Auto) 0.4 % (0-0.5) Neut % (Auto) 79.1 H % (45.5-73.1) Lymph % (Auto) 15.4 L % (18.3-44.2) Bethel % (Auto) 4.4 % (2.6-8.5) Eos % (Auto) 0.3 % (0-4.4) Baso % (Auto) 0.4 % (0.2-1.2) Lymph # (Auto) 2.43 K/mm3 (0.9-3.2) Bethel # (Auto) 0.7 H K/mm3 (0.1-0.6) Eos # (Auto) 0.1 K/mm3 (0-0.3) Baso # (Auto) 0.1 K/mm3 (0.0-0.1) Abs Immat Gran (auto) 0.06 H K/mm3 (0.00-0.031) Absolute Neuts (auto) 12.5 H K/mm3 (1.3-6.7) Absolute Nucleated RBC 0.0 K/mm3 (0.0-0.012) Nucleated RBC % 0.0 % (0.0-0.2) Sodium 141 mmol/L (137-145) Potassium 4.2 mmol/L (3.4-5.0) Chloride 107 mmol/L (98-107) Carbon Dioxide 24 mmol/L (22-30) Anion Gap 10 mmol/L (8-16) BUN 19 mg/dL (9-20) Creatinine 0.70 mg/dL (0.7-1.3) Estim Creat Clear Calc 169 ml/min Estimated GFR > 60 (59 - ) Glucose 112 H mg/dL (65-110) Calcium 9.3 mg/dL (8.4-10.2) Total Bilirubin 0.6 mg/dL (0.2-1.3) AST 28 U/L (17-59) ALT 41 U/L (6-50) Alkaline Phosphatase 61 U/L (38-126) Total Protein 8.0 g/dL (6.3-8.2) Albumin 4.8 g/dL (3.5-5.1) Lipase 53 U/L (23-300) Urine Color Yellow (Yellow) Urine Appearance Clear (Clear) Urine pH 6.0 (5.0-9.0) Ur Specific Alanson 1.011 (1.001-1.035) Urine Protein Trace mg/dL (Negative) Urine Glucose (UA) Negative mg/dL (Negative) Urine Ketones Negative mg/dL (Negative) Ur Blood (Man) 2+ H (Negative) Urine Nitrate Negative (Negative) Urine Bilirubin Negative (Negative) Urine Urobilinogen 0.2 mg/dL (<2.0) Leukocyte Esterase Rfl 2+ H GABINO/UL (Negative) Urine RBC 6-10 H /hpf (0-2) Urine WBC 51-100 H /hpf Ur Squamous Epith Cells Occasional /hpf (Few) Urine Bacteria None seen /hpf Urine Casts 0-2 Patient hx anesthesia problems: none Family hx anesthesia problems: none Results Review: All pre-operative results and documents have been reviewed as part of the pre-operative evaluation. [facility] Past Medical History Medical History Anxiety disorder Attention deficit hyperactivity disorder Calculus of left ureter Depression Hyperlipemia Kidney stones Obsessive compulsive disorder Suspected sleep apnea Patient has yet to have a formal outpatient polysomnogram. Surgical History Surgical History History of cystoscopy History of lithotripsy History of removal of calculus of renal pelvis through percutaneous nephrostomy Family History Family History (Reviewed 08/04/22 @
[2022-08-04] MEDS: LIDOCAINE HCL 2% GEL UROJET 10 ML PKG MUCOUS MEM (14:40)
--- NOTE | 2022-08-04 14:42 | W.PM.PROC2 ---
Procedure Note - Detailed Date of Procedure 08/04/22 Pre-op Diagnosis left flank pain with hx of kidney stones Post-op Diagnosis Same Procedure Performed Cystoscopy, left retrograde pyelogram, left ureteral stent insertion Surgeon Amanuel Martino MD Anesthesia General Description of Procedure Informed consent was obtained. Patient taken the operating room. He was given preoperative IV antibiotics in the emergency department. He was just anesthesia. Plain film x-ray revealed large stone present at the UPJ. We then 22 F cystoscope through the urethra into the bladder. Inspected the bladder revealed no mucosal abnormalities. We cannulated the left ureteral orifice and a retrograde pyelogram was performed revealing filling defect in the left proximal ureter and [id number] left hydronephrosis. We then passed a wire beyond the level of the stone. Over wire we then advanced a 4.8 variable length stent with a curl in the upper pole curl in the bladder. The bladder was then emptied. lidocaine instilled. Patient taken to recovery room stable condition Estimated Blood Loss 0 Complications No immediate complications Condition Stable Disposition PACU
[2022-08-04] MEDS: KETOROLAC 30 MG/ML VIAL (*BKC) IV PUSH (14:45)
[2022-08-04] MEDS: LACTATED RINGERS 1,000 ML 30 ML IV CONT (14:47)
== END 2022-08-04 16:25 | disposition home or self-care (01) ==
LOC: ANHED 13:19 → ANHSURGERY 13:20
PROVIDERS: Emergency Provider Emergency Medicine; PCP Emergency Medicine; Visit Provider Urology
PROC: (CPT 52352; principal; 2022-08-04 14:00)
DX: N13.2 Hydronephrosis with renal and ureteral calculous obstruction (principal); N39.0 Urinary tract infection, site not specified; F41.9 Anxiety disorder, unspecified; F12.90 Cannabis use, unspecified, uncomplicated; E66.9 Obesity, unspecified; Z68.34 Body mass index [BMI] 34.0-34.9, adult
CPT/HCPCS: 52332; 36415; 74018; 74176; 74420; 80053; 81001; 83690; 85025; 87086; 96365; 96375; 99285; C1758; C1769; C2617; J0696; J1100; J1885; J2250; J2270; J2405; J2704; J3010; J7120

== ENCOUNTER 2022-08-26 15:38 | Inpatient (IN) | payer OTHER, SELFPAY ==
[2022-08-26] VITALS (7 sets, daily range): BP systolic 143–161; BP diastolic 71–75; PULSE 99–125; RESP 16–21; TEMP 37.2–38.8; O2SAT 96–100
--- NOTE | ~2022-08-26 | CT_ITS ---
EXAMINATION: CT abdomen pelvis w con DATE: 08/26/2022 17:46 INDICATION: Abdominal pain. Left flank pain. TECHNIQUE: Computed tomography (CT) of the abdomen and pelvis was performed with 100 mL Omnipaque 350 intravenous contrast. Automated exposure control and iterative reconstruction technique were employe d. The dose-length product was 1191.41 mGy-cm. COMPARISON: CT abdomen and pelvis 08/04/2022, 12/29/21 FINDINGS: The visualized portions of the lung bases demonstrate mild atelectasis. No pleural effusion . The heart size is normal. No pericardial effusion. The liver, gallbladder, spleen, pancreas, and ad renal glands are normal. There is a 16 mm stone in right renal pelvis. There are 6 stones in the dong ana of right kidney measuring up to 7 mm. There is mild right hydronephrosis. There is urothelial thi ckening in right renal pelvis. There is an 8 mm cluster of stones in the bladder. There is mild left hydronephrosis and hydroureter with urothelial thickening and surrounding fat stranding. There are nu merous small stones in the left kidney and left renal pelvis. The largest stone measures at least 3 m m, but clustering of the stones decreases specificity. There are no dilated loops of bowel. The appen blanche is not visualized. There are no pathologically enlarged lymph nodes. There is no free intraperito marina fluid. There is mild lumbar spondylosis. IMPRESSION: 1. Mild left hydronephrosis and hydroureter with pyelitis. 2. 16 mm stone in right renal pelvis with mild right hydronephrosis and chronic pyelitis. 3. Bilateral nonobstructing kidney stones. Bladder stones. Reviewed, dictated and finalized at location E.
--- NOTE | ~2022-08-26 | XR_ITS ---
EXAMINATION: XR chest 2V DATE: 08/26/2022 17:49 INDICATION: Fever. TECHNIQUE: Frontal and lateral views of the chest were obtained. COMPARISON: CT abdomen and pelvis 08/26/2022 FINDINGS: There is eventration of anterior right hemidiaphragm. There is mild atelectasis in left low er lung zone. No pleural effusion or pneumothorax. The heart size is normal. IMPRESSION: 1. Mild atelectasis in left lower lung zone. Reviewed, dictated and finalized at location E.
--- NOTE | 2022-08-26 16:30 | ED.FEVER ---
HPI - Fever General Chief Complaint: Fever <HOWIE Samuels Last Filed: 08/26/22 20:05> Stated Complaint: sent from for body aches, fever <HOWIE Samuels Last Filed: 08/26/22 20:05> Time Seen by Provider: 08/26/22 16:19 <HOWIE Samuels Last Filed: 08/26/22 20:05> History of Present Illness HPI Narrative: 32-year-old male with a history of kidney stones and pyelonephritis reports for evaluation of a fever of 102 at home that started today after he had his ureteral left stent removed. Patient was seen in the ED on 08/04 and was found to have an infected stone in his left ureter. He was taken to the OR for stent placement with Dr. Lawson at that time. Patient was discharged home from the hospital and had lithotripsy to performed [address] Alvarez. He has follow-up appointment today at 8:15 AM for stent removal. States after the stent was removed, the patient developed a 99 degree temperature and started to develop body aches. States he laid down for nap and by the time he woke up it was 102 so he came to the ED. He is reporting generalized body aches and a dull ache to his low back, generalized headache and left flank pain. He also reports a sore throat this morning is since resolved. He denies dysuria, hematuria, urinary frequency or urgency, cough or congestion, chest pain or shortness of breath, nausea, vomiting, diarrhea. Reports taking Tylenol this morning around 7 AM. <HOWIE Samuels Last Filed: 08/26/22 20:05> Related Data Home Medications: Home Medications Medication Instructions Recorded Confirmed hydrocodone 5 mg-acetaminophen 325 5 - 325 tablet PO PRN PRN Pain 08/27/22 08/27/22 mg tablet <HOWIE Samuels Last Filed: 08/26/22 20:05> Allergies/Adverse Reactions: Allergies Allergy/AdvReac Type Severity Reaction Status Date / Time No Known Allergies Allergy Verified 08/26/22 16:17 <HOWIE Samuels Last Filed: 08/26/22 20:05> Review of Systems Review of Systems: CONSTITUTIONAL: See HPI EYES: Denies visual changes, redness, or discharge. ENT: Denies rhinorrhea, congestion, or otalgia. CARDIOVASCULAR: Denies chest pain, palpitations, or edema. RESPIRATORY: Denies cough or dyspnea. GASTROINTESTINAL: See HPI GENITOURINARY: Denies dysuria or hematuria. SKIN: Denies rash or itching. MUSCULOSKELETAL: See HPI NEUROLOGIC: Denies headache, numbness, dizziness, or weakness. PSYCHIATRIC: Denies anxiety or depression. <Aditi Katz PA-C - Last Filed: 08/26/22 20:05> [facility] Past Medical History Medical History: Medical History Anxiety disorder Attention deficit hyperactivity disorder Depression Hyperlipemia Kidney stones Obsessive compulsive disorder Suspected sleep apnea Patient has yet to have a formal outpatient polysomnogram. <Aditi Katz PA-C - Last Filed: 08/26/22 20:05> Surgical History Surgical History: Surgical History (Updated 08/26/22 @ 18:52 by Yesenia Goldberg PA-C) History of cystoscopy History of inguinal hernia repair History of lithotripsy History of removal of calculus of renal pelvis through percutaneous nephrostomy <Aditi Katz PA-C - Last Filed: 08/26/22 20:05> Family History Family History: Family History Mother Diabetes mellitus Kidney stone Father ETOH abuse Liver cancer <Aditi Katz PA-C - Last Filed: 08/26/22 20:05> Social History Social History: Social History Social History: Surrogate medical decision maker: Estephania Hanson, spouse. Code status: Full code. Smoking status: Never smoker Alcohol intake: current Drinks per week: 0 Alcohol use details: maybe once a month, if that Substance use type: marijuana Other substance
[2022-08-26] MEDS: ACETAMINOPHEN 500 MG TABLET 1000 MG PO (16:43)
[2022-08-26] MEDS: SODIUM CHLORIDE 0.9% IV 1,000 ML 999 ML IV CONT ×2 (16:54→18:49)
[2022-08-26] MEDS: HYDROmorphone HCL INJ (*CRX) 1 MG/ML SYR 0.5 MG IV PUSH (16:57)
[2022-08-26] MEDS: ONDANSETRON INJ 4 MG/2 ML VIAL IV PUSH (17:01)
[2022-08-26 17:22] LABS: Basophils Absolute Auto 0.1 K/mm3 (0.0-0.1); Basophils Percent Auto 0.4 % (0.2-1.2); Eosinophils Percent Auto 0.1 % (0-4.4); Hematocrit 39.4 % (42.0-52.0); Hemoglobin 13.7 g/dL (14.0-18.0); Immature Granulocyte Absolute 0.05 K/mm3 (0.00-0.031); Immature Granulocyte Percent A 0.4 % (0-0.5); Lymphocytes Absolute Auto 1.45 K/mm3 (0.9-3.2); Lymphocytes Percent Auto 10.7 % (18.3-44.2); Mean Corpuscular HGB Conc 34.8 g/dl (32-36); Mean Corpuscular Volume 83.5 fl (80-100); Mean Platelet Volume 8.8 fl (7.4-10.4); Monocytes Absolute Auto 1.2 K/mm3 (0.1-0.6); Monocytes Percent Auto 8.7 % (2.6-8.5); Neutrophils Absolute Auto 10.8 K/mm3 (1.3-6.7); Neutrophils Percent Auto 79.7 % (45.5-73.1); Platelet Count Result 239 k/mm3 (150-375); Red Blood Count 4.72 M/mm3 (4.6-6.20); Red Cell Distribution Width 12.4 % (11.5-14.5); White Blood Count 13.5 K/mm3 (4.5-10.0)
[2022-08-26 17:27] LABS: Alanine Aminotransferase 24 U/L (6-50); Albumin Level 4.3 g/dL (3.5-5.1); Alkaline Phosphatase 64 U/L (38-126); Anion Gap 10 mmol/L (8-16); Aspartate Amino Transferase 20 U/L (17-59); Bilirubin,Total 0.8 mg/dL (0.2-1.3); Blood Urea Nitrogen 15 mg/dL (9-20); CRP 7.9 mg/dL (<1.0); Calcium 8.7 mg/dL (8.4-10.2); Carbon Dioxide 25 mmol/L (22-30); Chloride 103 mmol/L (98-107); Estimated CRCL calculation 167 ml/min; Estimated Glomerular Filt Rate > 60; Glucose 118 mg/dL (65-110); Lipase 28 U/L (23-300); Potassium 3.7 mmol/L (3.4-5.0); Sodium 138 mmol/L (137-145)
[2022-08-26 17:29] LABS: Appearance Urine Cloudy (Clear); Bacteria Urine None Seen /hpf; Bilirubin Urine Negative (Negative); Blood Urine 3+ (Negative); Color Urine Dark Yellow (Yellow); Glucose Urine UA Negative (Negative); Ketones Urine Negative (Negative); Leukocyte Esterase Ur 2+ LEU/UL (Negative); Nitrate Urine Negative (Negative); Non Pathogenic Casts 0-2; Protein Urine 1+ mg/dL (Negative); RBC Urine >100 /hpf (0-2); Specific Grav Ur 1.012 (1.001-1.035); Squamous Epithelial Cell Urine None seen /hpf (Few); Urobilinogen Urine 0.2 mg/dL (<2.0); WBC Urine 51-100 /hpf; pH Urine 7.5 (5.0-9.0)
[2022-08-26 17:34] LABS: Add Urine Microscopic? YES
[2022-08-26 18:03] LABS: Strep Group A RT-PCR NOT DETECTED (Negative)
[2022-08-26 18:14] LABS: Influenza A QL RT-PCR Negative (Negative); Influenza B QL RT-PCR Negative (Negative); SARS-CoV-2 RNA PCR Negative (Negative)
--- NOTE | 2022-08-26 18:49 | PM.IMHP ---
H&P: HPI History of Present Illness Date/Time: 08/26/22 18:45 Chief Complaint: Fever and body aches. Narrative: This is a 32-year-old male with history of kidney stones who presented to the emergency department for evaluation of fever and body aches. Earlier this month he underwent cystoscopy with stent placement per Dr. Best for obstructing left ureteral stent and 2 days ago he had lithotripsy performed per Dr. Alvarez in [place]. His stent was removed in office this morning and a couple of hours later he developed body aches and a fever up to 102? F. He lay down to take a nap and when he got up he still had a temperature with a headache and a dull aching pain in the left low back and flank. He denies cold and flu symptoms, chest pain, shortness a breath, vomiting, dysuria, and hematuria. CT scan in the emergency department showed mild left hydronephrosis and hydroureter with pyelitis. With his fever (101.2? F on arrival), leukocytosis, and recent stent removal he is being admitted for IV antibiotics. Review of Systems Review of Systems: Twelve systems were reviewed and are negative except for as per HPI. [facility] Past Medical History Medical History Anxiety disorder Attention deficit hyperactivity disorder Depression Hyperlipemia Kidney stones Obsessive compulsive disorder Suspected sleep apnea Patient has yet to have a formal outpatient polysomnogram. Surgical History Surgical History (Updated 08/26/22 @ 18:52 by Yesenia Goldberg PA-C) History of cystoscopy History of inguinal hernia repair History of lithotripsy History of removal of calculus of renal pelvis through percutaneous nephrostomy Family History Family History Mother Diabetes mellitus Kidney stone Father ETOH abuse Liver cancer Social History Social History Social History: Surrogate medical decision maker: Estephania Hanson, spouse. Code status: Full code. Smoking status: Never smoker Alcohol intake: current Drinks per week: 0 Alcohol use details: maybe once a month, if that Substance use type: marijuana Other substance usage details: edibles Living arrangements: with family Additional living arrangements comments: Lives with and dog in [place]. Occupation/Education: occupation Additional occupation/education comments: [employer]. Spiritual care concerns: No Agree to blood products: Yes Meds Home Medications and Allergies Home Medications Medication Instructions Recorded Confirmed Type hydroxyzine HCl 25 mg tablet 25 mg PO TID PRN anxiety #60 tabs 07/26/22 08/04/22 Rx sulfamethoxazole 800 1 tablet PO Q12H #7 tabs 08/04/22 Rx mg-trimethoprim 160 mg tablet (Bactrim DS) Allergies Allergy/AdvReac Type Severity Reaction Status Date / Time No Known Allergies Allergy Verified 08/26/22 16:17 Vital Signs Vital Signs - 24 hr 08/26/22 15:55 08/26/22 16:13 08/26/22 18:05 Temperature 101.2 F H 102 F H 100.8 F H Pulse Rate 125 H 111 H 112 H Respiratory Rate 20 21 H 16 Blood Pressure 143/72 H 144/75 H Pulse Oximetry 96 97 97 Oxygen Delivery Room Air 08/26/22 18:11 08/26/22 18:12 Temperature 100.8 F H 100.8 F H Pulse Rate Respiratory Rate Blood Pressure Pulse Oximetry Oxygen Delivery Exam Narrative: General: Well-developed, moderately ill-appearing male supine in bed. Weight: 11.9 kg. BMI: 33.5. HEENT: Wearing corrective lenses. PERRL, EOMI. Sclera anicteric. Tacky mucous membranes. Neck: Supple. Respiratory: Lungs are clear to auscultation bilaterally. Cardiovascular: Tachycardic with normal S1-S2. Gastrointestinal: Abdomen is soft, nontender, and nondistended with positive bowel sounds. Mild tenderness to palpation over the left flank. Equivocal left CVA tenderness. S
[2022-08-26] MEDS: PIPERACILLN/TAZ 3.375GM/NS50ML 3.375 GM/50 ML BAG IVPB ×2 (19:59→23:47)
[2022-08-26] MEDS: SODIUM CHLORIDE 0.9% IV 1,000 ML 125 ML IV CONT (20:00)
[2022-08-26] MEDS: ACETAMINOPHEN 325 MG TABLET 650 MG PO (23:42)
[2022-08-26] MEDS: hydrOXYzine HCL 25 MG TABLET PO (23:42)
--- NOTE | 2022-08-27 00:01 | PC.NURSE ---
Pt presents to [address] [place] [address] with bilateral hand tremors and left leg shaking. Pt states he doesn't like hospitals. Pt c/o of a headache. BP 148/74, HR 108, Temp 98.9. Pt was given Acetaminophen, Hydroxyzine, and continued NS running at 125ml/hr.
[2022-08-27 00:10] VITALS: BMI 33.4
--- NOTE | 2022-08-27 01:00 | ADMGEN ---
This patient, Timmy Hanson, was admitted to 3 Med Surg Room 309-01 @[id number]. Patient/family oriented to hospital policies and general routines including ID bracelet, bed and alarms, visiting hours, pain management, procedures, bathroom and other care routines, personal items, smoking policy, room service/diet, and visiting hours. Information on how to activate the Rapid Response Team has been discussed. Patient/Family are encouraged to report perceived risks to care and to ask questions if they do not understand what they are told or what they should do.
[2022-08-27] MEDS: PIPERACILLN/TAZ 3.375GM/NS50ML 3.375 GM/50 ML BAG IVPB ×3 (04:41→17:50)
[2022-08-27] MEDS: SODIUM CHLORIDE 0.9% IV 1,000 ML 125 ML IV CONT (04:50)
[2022-08-27 05:32] LABS: Hematocrit 37.4 % (42.0-52.0); Hemoglobin 12.6 g/dL (14.0-18.0); Mean Corpuscular HGB Conc 33.7 g/dl (32-36); Mean Corpuscular Hemoglobin 28.6 pg (26-34); Mean Corpuscular Volume 84.8 fl (80-100); Mean Platelet Volume 8.9 fl (7.4-10.4); Platelet Count Result 226 k/mm3 (150-375); Red Blood Count 4.41 M/mm3 (4.6-6.20); Red Cell Distribution Width 12.2 % (11.5-14.5); White Blood Count 13.3 K/mm3 (4.5-10.0)
[2022-08-27 05:43] VITALS: BP 141/72; PULSE 109; RESP 18; TEMP 36.3; O2SAT 98
[2022-08-27 05:43] LABS: Anion Gap 5 mmol/L (8-16); Blood Urea Nitrogen 11 mg/dL (9-20); Calcium 8.2 mg/dL (8.4-10.2); Carbon Dioxide 26 mmol/L (22-30); Chloride 105 mmol/L (98-107); Estimated CRCL calculation 148 ml/min; Estimated Glomerular Filt Rate > 60; Glucose 110 mg/dL (65-110); Potassium 3.7 mmol/L (3.4-5.0); Sodium 136 mmol/L (137-145)
[2022-08-27] MEDS: ACETAMINOPHEN 325 MG TABLET 650 MG PO (12:55)
--- NOTE | 2022-08-27 12:56 | WPDURCON ---
Assessment and Plan Assessment and plan (1) Kidney stones: Code(s): N20.0 - Calculus of kidney Status: Acute Assessment and Plan: No causing pain at this time as there is no obstruction. No need for a stent placement or surgical intervention at this time. He will need another lithotripsy at some point when infection is cleared as an outpatient. He has a follow up scheduled with Dr. Booker in 2 weeks. (2) Bladder stones: Code(s): N21.0 - Calculus in bladder Status: Acute (3) Hydronephrosis: Code(s): N13.30 - Unspecified hydronephrosis Status: Acute Assessment and Plan: Secondary to pyelonephrosis, no obstruction noted on CT. (4) Pyelitis: Code(s): N12 - Tubulo-interstitial nephritis, not specified as acute or chronic Status: Acute Assessment and Plan: Continue with Zosyn, symptoms are improving, tailor antibiotics to culture sensitivity. Urology Consult Note HPI Date Seen: 08/27/22 Time Seen: 12:56 Requesting Physician: Jayshree Gray PA-C Primary Care Provider: Amanuel Smiley MD Consult Narrative Reason for consult: Pyelonephritis Narrative: Timmy Hanson is a 32 year old male who presented to the ER yesterday for flank pain and fever of 102 s/p stent removal yesterday morning by Dr. Booker in the office at 8:15am. He was seen in our [place] office. He developed body aches as well. He denies hematuria, frequency, urgency and incontinence. His stent was placed on 08/04/[address] Amanuel Martino via Cystoscopy with stent placement and retrograde pyelogram d/t a 1.3 x 0.8 cm obstructing stone at the right proximal left ureter, with moderate left hydronephrosis seen on CT from 08/04/22. He also has a Nonobstructing 9 mm stone in the dilated left renal pelvis.1.5 x 0.9 cm on the right renal pelvis with possible minimal right hydronephrosis. Multiple additional smaller nonobstructing right renal stones are also present. He then had a lithotripsy on the left side with Dr. Booker at [place]. His most recent CT upon arrival at the ER on 08/26/22 shows resolution of the left ureteral stone and shows mild left hydronephrosis and hydroureter with pyelitis, a 16 mm stone in right renal pelvis with mild right hydronephrosis and chronic pyelitis and bilateral nonobstructing kidney stones as well as bladder stones. He states that after starting antibiotics his pain has resolved and he feels much better. His fever has also resolved. His creatinine is 0.80, WBC is >13,000, and he remains on Zosyn at this time. A urine culture and blood cultures are still pending. Review of Systems Respiratory: Respiratory: Reports no additional respiratory complaints Gastrointestinal: Gastrointestinal: Denies abdominal pain, Denies nausea and Denies vomiting Genitourinary: Genitourinary: Denies hematuria, Denies dysuria, Denies flank pain, Denies urinary frequency, Denies urinary hesitancy, Denies urinary incontinence and Denies urinary urgency PMFSH Past Medical History Medical History Anxiety disorder Attention deficit hyperactivity disorder Depression Hyperlipemia Kidney stones Obsessive compulsive disorder Suspected sleep apnea Patient has yet to have a formal outpatient polysomnogram. Surgical History Surgical History History of cystoscopy History of inguinal hernia repair History of lithotripsy History of removal of calculus of renal pelvis through percutaneous nephrostomy Family History Family History Mother Diabetes mellitus Kidney stone Father ETOH abuse Liver cancer Social History Social History Social History: Surrogate medical decision maker: Estephania Hanson, spouse. Code status: Full code. Smoking status: Never smoker Alcohol intake: yulissa
[2022-08-27 14:00] VITALS: BP 153/73; PULSE 104; RESP 20; TEMP 36.4; O2SAT 98
--- NOTE | 2022-08-27 14:51 | PM.IMPN ---
Progress Note: A&P Assessment and Plan (1) Sepsis: Code(s): A41.9 - Sepsis, unspecified organism Status: Acute Assessment and Plan: Patient meets sepsis criteria with fever, tachycardia, and leukocytosis in the setting of urinary tract infection and pyelitis. Blood pressures have been stable. Lactic acid level within normal limits. T-max 102.0?. Patient remaining afebrile so far today. Blood and urine cultures pending. Continue IV Zosyn while awaiting culture results. Patient was rehydrated with IV fluids and is now tolerating p.o. intake. IV fluids discontinued (2) Urinary tract infection: Qualifiers: Hematuria presence: with hematuria Urinary tract infection type: site unspecified Qualified Code(s): N39.0 - Urinary tract infection, site not specified; R31.9 - Hematuria, unspecified Code(s): N39.0 - Urinary tract infection, site not specified Status: Suspected Assessment and Plan: Continue Zosyn, pending urine culture. (3) Pyelitis: Code(s): N12 - Tubulo-interstitial nephritis, not specified as acute or chronic Status: Acute Assessment and Plan: Plan is as detailed above. (4) Hydronephrosis: Code(s): N13.30 - Unspecified hydronephrosis Status: Acute Assessment and Plan: Mild left hydronephrosis and hydroureter and mild right hydronephrosis noted. Patient has been seen in consultation by Urology. No need for stent placement pr surgical intervention at this time. Will need outpatient lithotripsy following resolution of infection. (5) Kidney stones: Code(s): N20.0 - Calculus of kidney Status: Acute Assessment and Plan: CT shows bilateral nonobstructing stones and a 6 mm right renal pelvis stone with mild right hydronephrosis and chronic pyelitis. He is followed by Dr. Booker in [place] and has outpatient follow up scheduled in 2 weeks. (6) Bladder stones: Code(s): N21.0 - Calculus in bladder Status: Acute Assessment and Plan: Possibly from recent lithotripsy. Followed by Dr. Booker. (7) Anxiety: Code(s): F41.9 - Anxiety disorder, unspecified Status: Acute Assessment and Plan: Mood is stable at this time. Continue hydroxyzine as needed. Subjective Date/time seen: 08/27/22 14:51 Interval history: Date of service: 08/27/2022 Timmy Hanson is a 32-year-old male with a history of ADHD, OCD, RENATA, hyperlipidemia, kidney stones, recent ureteral stent placement 3 weeks ago who is seen in follow-up for UTI and pyelitis. Patient is feeling well today. He has no pain at this time. Does endorse some minimal soreness of his bilateral flanks which he rates as 2/10. States that he is uncomfortable due to laying in the hospital bed. Denies nausea, vomiting, fever, or chills. He is tolerating his diet. Denies dysuria, hematuria, urgency, or frequency. Review of Systems Review of Systems: All systems reviewed & are unremarkable except as noted in HPI and below Exam Narrative: General: Well-nourished, well-appearing 32-year-old male, sitting up in bed, comfortable, NARD Neuro: awake, alert and oriented x4, speech clear, no focal neuro deficits noted HEENMT: normocephalic, atraumatic, EOMI, sclerae anicteric Respiratory: clear to auscultation bilaterally, nonlabored breathing Cardio: regular rate, regular rhythm with S1-S2 Abdomen: nondistended, normoactive bowel sounds, soft, nontender to palpation : No CVA tenderness Extremities: no edema, erythema, or tenderness to palpation Skin: no rashes or lesions, warm and dry Psych: appropriate mood and affect, judgment and insight intact Objective Data Vital Signs Vital Signs: Vital Signs - 24 hr 08/26/22 15:55 08/26/22 16:13 08/26/22 18:05 Temperature 101.2 F H 102 F H 100.8 F H Pulse Rate 125 H 111 H 112 H Respiratory Rate 20 21 H 16 Blood Pressure 143/72 H 144/75 H Pulse Oximetry 96 9
[2022-08-27] MEDS: HYDROcodone/acetaminophen (*CRX) 5-325 MG TABLET 1 TAB PO (17:54)
[2022-08-27 19:59] VITALS: PULSE 104; RESP 20; O2SAT 98
[2022-08-27 21:34] VITALS: BP 136/67; PULSE 97; RESP 20; TEMP 36.4; O2SAT 98
[2022-08-28 06:00] VITALS: BP 145/74; PULSE 85; RESP 20; TEMP 37; O2SAT 98
[2022-08-28 06:28] LABS: Hematocrit 38.1 % (42.0-52.0); Hemoglobin 12.8 g/dL (14.0-18.0); Mean Corpuscular HGB Conc 33.6 g/dl (32-36); Mean Corpuscular Hemoglobin 28.4 pg (26-34); Mean Corpuscular Volume 84.7 fl (80-100); Mean Platelet Volume 8.7 fl (7.4-10.4); Platelet Count Result 242 k/mm3 (150-375); Red Cell Distribution Width 12.2 % (11.5-14.5)
[2022-08-28 07:13] LABS: Anion Gap 6 mmol/L (8-16); Blood Urea Nitrogen 14 mg/dL (9-20); Calcium 8.6 mg/dL (8.4-10.2); Carbon Dioxide 29 mmol/L (22-30); Chloride 104 mmol/L (98-107); Estimated CRCL calculation 169 ml/min; Estimated Glomerular Filt Rate > 60; Glucose 111 mg/dL (65-110); Potassium 3.9 mmol/L (3.4-5.0); Sodium 139 mmol/L (137-145)
[2022-08-28 08:00] VITALS: RESP 20; O2SAT 98
[2022-08-28 08:32] VITALS: O2SAT 98
[2022-08-28] MEDS: PIPERACILLN/TAZ 3.375GM/NS50ML 3.375 GM/50 ML BAG IVPB (11:45)
--- NOTE | 2022-08-28 13:49 | PM.DS ---
DS: Admitting Diagnosis Discharge Date 08/28/2022 Admitting Diagnosis nephrolithiasis with acute pyelonephritis DS: Discharge Diagnosis Discharge Diagnosis (1) Sepsis: Code(s): A41.9 - Sepsis, unspecified organism Status: Acute Assessment and Plan: Patient meets sepsis criteria with fever, tachycardia, and leukocytosis in the setting of urinary tract infection and pyelitis. Blood pressures have been stable. Lactic acid level within normal limits. T-max 102.0?. (2) Urinary tract infection: Qualifiers: Hematuria presence: with hematuria Urinary tract infection type: site unspecified Qualified Code(s): N39.0 - Urinary tract infection, site not specified; R31.9 - Hematuria, unspecified Code(s): N39.0 - Urinary tract infection, site not specified Status: Suspected Assessment and Plan: Zosyn stopped upon discharge. Cultures negative. CIpro for 7 additional days ordered. (3) Pyelitis: Code(s): N12 - Tubulo-interstitial nephritis, not specified as acute or chronic Status: Acute Assessment and Plan: Plan as above (4) Hydronephrosis: Code(s): N13.30 - Unspecified hydronephrosis Status: Acute Assessment and Plan: Mild left hydronephrosis and hydroureter and mild right hydronephrosis noted. Patient has been seen in consultation by Urology. No need for stent placement pr surgical intervention at this time. Will need outpatient lithotripsy following resolution of infection. (5) Kidney stones: Code(s): N20.0 - Calculus of kidney Status: Acute Assessment and Plan: CT shows bilateral nonobstructing stones and a 6 mm right renal pelvis stone with mild right hydronephrosis and chronic pyelitis. He is followed by Dr. Booker in [place] and has outpatient follow up scheduled 09/14/22. (6) Bladder stones: Code(s): N21.0 - Calculus in bladder Status: Acute Assessment and Plan: Possibly from recent lithotripsy. Followed by Dr. Booker. (7) Anxiety: Code(s): F41.9 - Anxiety disorder, unspecified Status: Acute Assessment and Plan: Mood is stable at this time. Continue hydroxyzine as needed. DS: Summary Hospital Course Reason for hospitalization: fever, ct c/w acute pyelonephritis Hospital Course: 32-year-old male with history of kidney stones who presented to the emergency department for evaluation of fever and body aches. Earlier this month he underwent cystoscopy with stent placement per Dr. Best for obstructing left ureteral stent and 2 days CYTOGENETICIST he had lithotripsy performed per Dr. Alvarez in [place]. His stent was removed in office this morning and a couple of hours later he developed body aches and a fever up to 102? F. He lay down to take a nap and when he got up he still had a temperature with a headache and a dull aching pain in the left low back and flank. He denies cold and flu symptoms, chest pain, shortness a breath, vomiting, dysuria, and hematuria. CT scan in the emergency department showed mild left hydronephrosis and hydroureter with pyelitis. With his fever (101.2? F on arrival), leukocytosis, and recent stent removal he is being admitted for IV antibiotics. He was admitted treated with IV Zosyn. He rapidly defervesced. His urine cultures and blood cultures returned negative. He is feeling much better with minimal abdominal discomfort tolerating his diet without chest pain shortness a breath bowel or bladder issues or abnormal bleeding. He was performing ADLs independently. He was to go home and follow-up as an outpatient with his urologist on September 14 a scheduled. He was going to call to determine whether he could be seen sooner. Time Spent with Patient Time attestation: Total time spent providing and/or coordinating discharge services: Exam Narrative: General: Well-nourished, well-appearing 32-year-old male, sitting up in bed, comfortable, N
[2022-08-28 14:00] VITALS: RESP 16; TEMP 36.7; O2SAT 99
== END 2022-08-28 14:40 | disposition home or self-care (01) | DRG 872 ==
LOC: ANHED 19:04 → ANH3MEDSUR 22:16
PROVIDERS: Physician Assistant; Admitting Provider Internal Medicine; Emergency Provider Physician Assistant; PCP Emergency Medicine; Visit Provider Internal Medicine
DX: A41.9 Sepsis, unspecified organism (principal); N39.0 Urinary tract infection, site not specified; N13.6 Pyonephrosis; R31.9 Hematuria, unspecified; E78.5 Hyperlipidemia, unspecified; F41.9 Anxiety disorder, unspecified; F32.A Depression, unspecified; G47.33 Obstructive sleep apnea (adult) (pediatric); Z87.442 Personal history of urinary calculi; Z20.822 Contact with and (suspected) exposure to COVID-19
CPT/HCPCS: 36415; 71046; 74177; 80048; 80053; 81001; 83605; 83690; 83735; 85025; 85027; 86140; 87040; 87086; 87636; 87651; 96361; 96365; 96367; 96375; 99285; A9270; G0378; J0696; J1170; J2405; J2543; J7030; Q9967

== ENCOUNTER 2023-05-30 08:50 | Outpatient (CLI) | payer OTHER, SELFPAY ==
--- NOTE | 2023-06-03 13:41 | WPDHOMESLEEP ---
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 His medical comorbidities including anxiety, depression and urinary problems. He he is tired upon waking and after an hour he feels like he could use a nap. He often has headaches. No matter how much sleep he gets he still tired. His reports that he snores and she also says that he stops breathing at night. He talks in his sleep. Anesthesiologist have told him to get checked for sleep apnea after surgeries. He rarely awakens from sleep feeling short of breath, rarely awakens at night with heartburn, belching or coughing. He frequently snores loudly enough that others complain about it. He frequently has difficulty sleeping with a cold. He rarely wakes up gasping for breath at night. He frequently has breathing problems at night reported to him by others. He rarely sweats excessively at night. He occasionally notices his heart pounding or beating irregularly at night. He rarely falls asleep during the day, rarely falls asleep while driving. he never has loss of muscle tone with strong emotion. He rarely has daytime difficulties due to excessive sleepiness. He does not feel paralyzed on waking or falling asleep. He occasionally experiences vivid dreamlike scenes upon awakening or falling asleep. He rarely feels afraid to go to sleep. He occasionally has nightmares. He occasionally remembers his dreams, occasionally has racing thoughts. He frequently feels sad, depressed or anxious. He rarely has muscular tension. He occasionally notices parts of his body jerking. He occasionally kicks at night. He rarely has crawling or aching feelings in his leg, rarely has any kind of leg pain at night. He does not have morning jaw pain. He rarely grinds his teeth during the night. He occasionally is bothered by pain during the day, rarely awakened by pain at night. He occasionally wakes up feeling stiff in the morning with sore achy not muscles are pain in the neck and spine. He has memory and concentration difficulties, he uses edibles, he has headaches and poor appetite. His normal bedtime is 10:00 p.m. falling asleep within 30 minutes, waking approximately 3 times during the night to go to the bathroom. He usually returns to sleep within 5 minutes. Usually wakes up by 7:00 a.m.. He keeps the same schedule on weekends. He takes naps in the afternoon or evening however a short nap lasting 10-15 minutes is not refreshing. He is drowsy in the morning for 1 hour or longer after waking. He feels better in the evening compared to other times of day. Habits:: Tobacco: never smoker Caffeine: 1-2 sodas per day Alcohol: none Recreational substances: edibles PMFSH Past Medical History Medical History Anxiety disorder Attention deficit hyperactivity disorder Depression Hyperlipemia Kidney stones Obsessive compulsive disorder Suspected sleep apnea Patient has yet to have a formal outpatient polysomnogram. Surgical History Surgical History History of cystoscopy History of inguinal hernia repair History of lithotripsy History of removal of calculus of renal pelvis through percutaneous nephrostomy Family History Family History Mother Diabetes mellitus Kidney stone Father ETOH abuse Liver cancer Social History Social History Social History:
[2023-06-03 13:56] VITALS: BMI 34.5
== END 2023-05-31 10:18 | disposition home or self-care (01) ==
PROVIDERS: PCP Emergency Medicine; Visit Provider Emergency Medicine
DX: G47.10 Hypersomnia, unspecified (principal); G47.33 Obstructive sleep apnea (adult) (pediatric)
CPT/HCPCS: 95800

== ENCOUNTER 2023-06-28 08:44 | Outpatient (CLI) | payer OTHER, SELFPAY ==
--- NOTE | 2023-06-28 08:53 | ECHO_ITS ---
Patient Info Name: Timmy Hanson Age: 33 years : 1990 Gender: Male Ht: 72 in Wt: 255 lbs BSA: 2.46 m2 HR: 85 bpm BP: 125 / 81 mmHg Heart Rhythm: Sinus Rhythm Technical Quality: Good Exam Date: 06/28/2023 9:04 AM Exam Location: [facility] Patient Status: Outpatient Admit Date: 06/28/2023 Staff Ordering Physician: Amaunel Smiley MD Mails Supervisor: Leonora Pearl RDCS Attending Provider: Amanuel Smiley MD Referring Physician: Baljit BREWSTER; Exam Type: CA echo doppler color flow Study Info Indications - periodic breathing Complete two-dimensional, color flow and Doppler transthoracic echocardiogram is performed. Summary 1. Complete two-dimensional, color flow and Doppler transthoracic echocardiogram is performed. 2. Left ventricular chamber dimension is normal. 3. Left ventricular systolic function is normal, estimated at 60-65%. 4. The left ventricular diastolic function is normal. 5. E/e' 7 is not elevated. 6. There is trace tricuspid valve regurgitation. 7. No pulmonary hypertension, estimated pulmonary arterial systolic pressure is 22 mmHg. Left Ventricle E/e' 7 is not elevated. Left ventricular chamber dimension is normal. Left ventricular systolic function is normal, estimated at 60-65%. The left ventricular diastolic function is normal. Right Ventricle Right ventricular systolic function is normal and with normal TAPSE 2.0 cm. Right ventricular chamber dimension is normal. Left Atria Left atrial chamber dimension is normal. Right Atria Right atrial chamber dimension is normal. Aortic Valve The aortic valve is trileaflet. There is no aortic valve stenosis. There is no aortic valve regurgitation. Pulmonic Valve There is no pulmonic regurgitation. Mitral Valve There is no mitral valve stenosis. There is no mitral valve regurgitation. Tricuspid Valve There is trace tricuspid valve regurgitation. No pulmonary hypertension, estimated pulmonary arterial systolic pressure is 22 mmHg. Pericardium/Pleural There is no pericardial effusion. Inferior Vena Cava Normal inferior vena cava with >50% collapse upon inspiration consistent with normal right atrial pressure, 5 mmHg. Aorta The aortic root size at the sinus of Valsalva is normal. Left Ventricular Outflow Tract Name Value Normal LVOT 2D LVOT Diameter 2.0 cm LVOT Doppler LVOT Peak Gradient 4 mmHg LVOT Mean Gradient 2 mmHg LVOT VTI 16 cm LVOT VTI/AV VTI Ratio 0.9 LVOT Stroke Volume 49 ml LVOT CO 3.8 l/min LVOT CI 1.5 l/min/m2 Pulmonic Valve Name Value Normal RVOT Doppler RVOT Peak Gradient 2 mmHg PV Doppler PV Peak Gradient 6 mmHg
== END 2023-06-28 08:45 | disposition home or self-care (01) ==
LOC: ANHCARD 08:45
PROVIDERS: PCP Emergency Medicine; Visit Provider Emergency Medicine
DX: R06.3 Periodic breathing (principal)
CPT/HCPCS: 93306

== ENCOUNTER 2023-07-07 12:16 | Outpatient (CLI) | payer OTHER, SELFPAY ==
[2023-07-18 17:53] VITALS: BMI 34.7
--- NOTE | 2023-07-18 17:53 | WPDSLEEPSTUD ---
Sleep Study Date of Study: 07/07/23 Ordering Provider: Amanuel Smiley MD Interpreting Physician: Amy Connell, Sleep Study Type: CPAP Titration Height: 1.83 m Weight: 116.12 kg Body Mass Index: 34.7 Neck Circumference (inches): 18 [place]: 10 Reason for Sleep Study The patient had a WatchPat home sleep test on May 30, 2023 that showed an overall AHI of 46.7 with a?central apnea-hypopnea index of 28 associated with Yoel-Garza respirations (PLASTERER STUCCO) during 13% of the night below 88% saturation.?? 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 ? His medical comorbidities including anxiety, depression and urinary problems.? He he is tired upon waking and after an hour he feels like he could use a nap.? He often has headaches.? No matter how much sleep he gets he still tired.? His reports that he snores and she also says that he stops breathing at night.? He talks in his sleep.? Anesthesiologist have told him to get checked for sleep apnea after surgeries. ? He rarely awakens from sleep feeling short of breath, rarely awakens at night with heartburn, belching or coughing.? He frequently snores loudly enough that others complain about it.? He frequently has difficulty sleeping with a cold.? He rarely wakes up gasping for breath at night.? He frequently has breathing problems at night reported to him by others.? He rarely sweats excessively at night.? He occasionally notices his heart pounding or beating irregularly at night.? He rarely falls asleep during the day, rarely falls asleep while driving.? he never has loss of muscle tone with strong emotion.? He rarely has daytime difficulties due to excessive sleepiness.? He does not feel paralyzed on waking or falling asleep.? He occasionally experiences vivid dreamlike scenes upon awakening or falling asleep.? He rarely feels afraid to go to sleep.? He occasionally has nightmares.? He occasionally remembers his dreams, occasionally has racing thoughts.? He frequently feels sad, depressed or anxious.? He rarely has muscular tension.? He occasionally notices parts of his body jerking.? He occasionally kicks at night.? He rarely has crawling or aching feelings in his leg, rarely has any kind of leg pain at night.? He does not have morning jaw pain.? He rarely grinds his teeth during the night.? He occasionally is bothered by pain during the day, rarely awakened by pain at night.? He occasionally wakes up feeling stiff in the morning with sore achy not muscles are pain in the neck and spine.? He has memory and concentration difficulties, he uses edibles, he has headaches and poor appetite. His normal bedtime is 10:00 p.m. falling asleep within 30 minutes, waking approximately 3 times during the night to go to the bathroom.? He usually returns to sleep within 5 minutes.? Usually wakes up by 7:00 a.m..? He keeps the same schedule on weekends.? He takes naps in the afternoon or evening however a short nap lasting 10-15 minutes is not refreshing.? He is drowsy in the morning for 1 hour or longer after waking.? He feels better in the evening compared to other times of day. Habits:: ? Tobacco:? never smoker? ? ? Caffeine:? 1-2 sodas per day ? ? Alcohol: ? none? Recreational substances:? edibles PMFSH Past Medical History Medical History Anxiety disorder Attention deficit hyperactivity disorder Depression Hyperlipemia Kidney stones Obsessive compulsive disorder Suspected sleep apnea Patient has yet to have a formal outpatient polysomnogram. Surgical History Surgical History History of cystoscopy History of inguinal hernia repair History of lithotripsy History of removal of calculus of renal pelvis through percutaneous nephrostomy Family History Family History Mother Diabetes stephen
== END 2023-07-08 07:09 | disposition home or self-care (01) ==
LOC: ANHCSM 12:16
PROVIDERS: PCP Emergency Medicine; Visit Provider Emergency Medicine
DX: G47.33 Obstructive sleep apnea (adult) (pediatric) (principal)
CPT/HCPCS: 95811

== ENCOUNTER 2023-12-09 08:50 | Outpatient (CLI) | payer OTHER, SELFPAY ==
--- NOTE | ~2023-12-09 | US_ITS ---
EXAMINATION: US soft tissue head and neck DATE: 12/09/2023 09:21 INDICATION: Localized enlarged lymph nodes in neck. TECHNIQUE: Multiple grayscale and Doppler ultrasound images of the head and neck were obtained. COMPARISON: None FINDINGS: There are normal lymph nodes in the neck in the patient's area of concern. IMPRESSION: 1. No abnormal neck mass or lymphadenopathy. Reviewed, dictated and finalized at location A.
== END 2023-12-09 08:51 | disposition home or self-care (01) ==
PROVIDERS: PCP Emergency Medicine; Visit Provider Emergency Medicine
DX: R59.0 Localized enlarged lymph nodes (principal)
CPT/HCPCS: 76536

== ENCOUNTER 2024-02-15 09:46 | Outpatient (CLI) | payer OTHER, SELFPAY ==
--- NOTE | 2024-02-15 10:45 | NEURO_ITS ---
Impression: # Complains of right upper extremity pain. # Normal Nerve Conduction Study; No Carpal Tunnel Syndrome or ulnar neuropathy. # Normal needle/EMG exam. # Clinical correlation recommended. Nerve Conduction Studies Anti Sensory Summary Table Stim Site NR Peak (ms) P-T Amp (?V) Site1 Site2 Delta-P (ms) Dist (cm) Rudy (m/s) Right Median Anti Sensory (2-3nd Digit) Wrist 2.8 46.2 Wrist 2-3nd Digit 2.8 14.0 50 Wrist 2.8 45.9 Wrist 2-3nd Digit 2.8 14.0 50 Right Radial Anti Sensory (Base 1st Digit) Wrist 2.2 10.1 Wrist Base 1st Digit 2.2 0.0 Right Ulnar Anti Sensory (5th Digit) Wrist 2.3 54.0 Wrist 5th Digit 2.3 14.0 61 Motor Summary Table Stim Site NR Onset (ms) O-P Amp (mV) Site1 Site2 Delta-0 (ms) Dist (cm) Rudy (m/s) Right Median Motor (Abd Poll Brev) Wrist 3.4 4.1 Elbow Wrist 4.8 30.0 63 Elbow 8.2 3.6 Right Ulnar Motor (Abd Dig Minimi) Wrist 2.6 8.1 A Elbow Wrist 5.4 32.0 59 A Elbow 8.0 7.7 F Wave Studies NR F-Lat (ms) L-R F-Lat (ms) Right Median (Mrkrs) (Abd Poll Brev) 28.28 Right Ulnar (Mrkrs) (Abd Dig Min) 28.37 EMG Side Muscle Nerve Root Ins Act Fibs Amp Dur Recrt Comment Right 1stDorInt Ulnar C8-T1 Nml Nml Nml Nml Nml Right Ext Indicis Radial (Post Int) C7-8 Nml Nml Nml Nml Nml Right Ext Digitorum Radial (Post Int) C7-8 Nml Nml Nml Nml Nml Right BrachioRad Radial C5-6 Nml Nml Nml Nml Nml Right PronatorTeres Median C6-7 Nml Nml Nml Nml Nml Right Abd Poll Brev Median C8-T1 Nml Nml Nml Nml Nml Right ABD Dig Min Ulnar C8-T1 Nml Nml Nml Nml Nml MTDD
== END 2024-02-15 09:47 | disposition home or self-care (01) ==
LOC: ANHNEURO 09:48
PROVIDERS: PCP Emergency Medicine; Visit Provider Emergency Medicine
DX: M77.11 Lateral epicondylitis, right elbow (principal)
CPT/HCPCS: 95886; 95909

== ENCOUNTER → 2024-06-28 09:12 | Outpatient (CLI) | payer OTHER, SELFPAY ==
--- NOTE | ~2024-06-28 | XR_ITS ---
XR tibia fibula LT 2V Ordering provider: Nitesh Lorenzo DO History: . M79.605 - Pain in left leg . Comparison: None. FINDINGS: BONES: No acute fracture or dislocation. JOINT SPACES: Normal. SOFT TISSUES: Normal. IMPRESSION: No acute osseous abnormality left leg. Reviewed, dictated and finalized at location A.
== END ==
LOC: EXPCRAD 09:14
PROVIDERS: PCP Family Medicine; Visit Provider Family Medicine
DX: M79.605 Pain in left leg (principal)
CPT/HCPCS: 73590

== ENCOUNTER 2024-07-06 11:28 | Outpatient (CLI) | payer OTHER, SELFPAY ==
--- NOTE | ~2024-07-06 | US_ITS ---
EXAMINATION: US soft tissue LE LT DATE: 07/06/2024 11:43 INDICATION: Left lower leg pain with palpable abnormality anterior to the left ankle TECHNIQUE: Multiple grayscale and Doppler ultrasound images of the region of concern in 2 to the left ankle were obtained. COMPARISON: Radiographs dated 06/28/2024 FINDINGS: Again seen is a small region of soft tissue swelling with reticulated pattern of subcutaneous edema i n the subcutaneous fat. There is a smooth cortical margin of the underlying tibia. An intervening ext ensor tendon appears normal. No abnormal masses or loculated fluid collections identified. IMPRESSION: 1. Focal soft tissue swelling with subcutaneous edema at the region of concern. No abnormal masses or loculated fluid collections identified. Reviewed, dictated and finalized at location A.
== END 2024-07-06 11:29 | disposition home or self-care (01) ==
LOC: MICIMG 11:28
PROVIDERS: PCP Family Medicine; Visit Provider Family Medicine
DX: M79.605 Pain in left leg (principal); R22.42 Localized swelling, mass and lump, left lower limb
CPT/HCPCS: 76882

== ENCOUNTER → 2024-08-21 08:40 | Outpatient (CLI) | payer OTHER, SELFPAY ==
--- NOTE | ~2024-08-21 | XR_ITS ---
XR hand RT min 3V Ordering provider: Nitesh Lorenzo DO History: . Rt hand pain/swelling 4-5th metacarp 1week no injury/trauma . Comparison: None. FINDINGS: BONES: No acute fracture or dislocation. JOINT SPACES: Normal. SOFT TISSUES: Normal. IMPRESSION: No acute osseous abnormality right hand. Reviewed, dictated and finalized at location A.
== END ==
PROVIDERS: PCP Nurse Practitioner Family; Visit Provider Family Medicine
DX: M79.641 Pain in right hand (principal)
CPT/HCPCS: 73130

== ENCOUNTER 2025-03-13 10:19 | Outpatient (CLI) | payer OTHER, SELFPAY ==
--- NOTE | ~2025-03-13 | CT_ITS ---
CT ABDOMEN AND PELVIS WITHOUT CONTRAST Clinical History: Z87.442 - Personal history of urinary calculi Comparison: CT abdomen pelvis 08/26/2022 Technique: Unenhanced axial images lung bases to symphysis pubis Coronal, sagittal reformats CT images acquired with automatic exposure control for dose reduction DLP: 367 mGy-cm Findings: Without intravenous contrast, sensitivity for detecting visceral parenchymal abnormalities decreased. Lung bases: Clear. Visualized heart and pericardium: Unremarkable. Liver: Unremarkable. Gallbladder: Unremarkable. Spleen: Unremarkable. Pancreas: Unremarkable. Adrenal glands: Unremarkable. Kidneys: Right kidney- No hydronephrosis. Tiny stones. 4 mm stone mid ureter Left kidney- No hydronephrosis. Tiny stones. Distal esophagus/stomach: Unremarkable. Small bowel loops: Normal caliber and wall thickness. Colon: Normal caliber and wall thickness. Normal RLQ appendix. Nodes: No enlarged nodes. Peritoneum: No ascites. No free intraperitoneal air. Urinary bladder: Unremarkable. Prostate: Unremarkable. Bones: No acute bony abnormality. Soft tissues: Unremarkable. Unopacified abdominal aorta: No aneurysmal dilatation. IMPRESSION: 1. 4 mm stone right mid ureter, no associated hydronephrosis. 2. Tiny bilateral nephrolithiasis. No hydronephrosis. Reviewed, dictated and finalized at location R. 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
== END 2025-03-13 10:20 | disposition home or self-care (01) ==
PROVIDERS: PCP Nurse Practitioner Family; Visit Provider Nurse Practitioner Family
DX: R10.A1 Flank pain, right side (principal); R39.12 Poor urinary stream; N20.2 Calculus of kidney with calculus of ureter
CPT/HCPCS: 74176